=== PATIENT | male | born 1955 | race Caucasian/White ===

== ENCOUNTER 2023-09-18 12:11 | Inpatient (IN) | payer MEDICARE, BC, SELFPAY ==
[2023-09-18] VITALS (13 sets, daily range): BP systolic 121–157; BP diastolic 50–94; BMI 33.9; BMI 34.2
--- NOTE | 2023-09-18 09:01 | W.PN.CARDCBS ---
Today's Communication / Plan
-
[facility] today
Impression / Plan
-
H&P summary.
Full H&P scanned into chart.
PCP: Jesus Palmer MD
CDY: Jeanie Friedman MD
HPI: 68 y/o, PMH sig for elevated calcium score in 2021 with moderate non obstructive CAD in LAD, RCA at cath (2021), Moderate , HTN, statin intolerant HLD, DM, CKD3a w/baseline creat 1.4, GFR 55, Gout, UC, obesity, Colon CA s/p partial colectomy
(2003).
Presented to [facility] with 2 week history progressive exertional chest pain, DARDEN, diaphoresis, relieved with rest. HS troponin negative.
Transferred for cath today.
Echo 06/2023- mild LVH, EF 60-65%, mod w/MG 36, TALIA 1.2
[facility] 09/16/21- mid LAD 50%, ectatic RCA with 50-60% mid and 30% distal RCA stenosis
RCA iFR negative, c/w non flow limiting disease
Moderate w/MG 34
IMPRESSION/PLAN:
USA/Mod non obstructive CAD (2021)
presents with USA/exertional chest pain
[facility] today
aspirin 81mg daily- dose given today
intolerant to plavix in the past- causes diarrhea- consider alt med if DAPT is necessary
cardiac rehab
followup w/Dr Friedman at d/c
Moderate - stable on echo from 06/2023
continue to monitor symptoms, outpt echos per primary cards.
HTN- stable on amlodipine 5/d, atenolol 12.5/BID, losartan 25/BID
monitor trends
HLD- history of statin intolerance (atorvastatin, simvastatin, pravastatin)
currently on Repatha, check lipids in AM
Borderline DM- check A1C in AM
CKD3a- some reports of CKD4 but current labs do not reflect this
pre/post cath fluids and check creat in AM post dye load
GEORGE/CPAP
Gout
Obesity
Progress Note - Human Resources Supervisor
Subjective
Date of Service: September 18, 2023
[2023-09-18] MEDS: LOW STRENGTH ASPIRIN 81 MG PO (12:50)
[2023-09-18 13:52] LABS: ACT-LR - POC 215 Seconds (116-155)
[2023-09-18 15:02] LABS: ACT-LR - POC > 397 Seconds (116-155)
--- NOTE | 2023-09-18 15:21 | CONSULT.CT ---
Consultation
-
Date/Time Consultation Performed: 09/18/23 15:20
Requesting Provider: Dr. Taylor
Performing Provider: Juan Carlos Rdz PA-C
Reason for Consultation: /CAD
Patient History
Physicians
Outpatient Ammonium Sulfate Operator: Dr. Benito
Inpatient Ammonium Sulfate Operator: Dr. Taylor
History of Present Illness
68 year-old male with history of nonobstructive CAD, mod , prediabetes, HTN, CKD, ulcerative colitis, and nephrolithiasis [facility] in [facility] with angina. CP was described as occuring with less and less activity. Troponins were mildly
elevated with little delta change. The patient requested to be transferred to [facility] because he is already established as a patient here. Dr. Taylor, the physician who did his prior cath, accepted the patient. LHC was performed on
09/17/23 which showed a 50-60% stenosis of his RCA. All other vessels showed nonobstructive coronary disease. He had moderate with a mean gradient of 34mmHg
Past Medical History
Past Medical History: Angina, NIDDM (prediabetes), GEORGE (uses CPAP), Renal Failure (CKD) and Valvular Disease
diverticulitis, ulcerative cholitis, nephrolithiasis
Past Surgical History
Past Surgical History: Cholecystectomy
Bowel resection,colostomy reversal, rotator cuff repair, hernia repair
Family History
Family Medical History: CAD (Father and brother both had MT's.)
Social History
Alcohol: Occasional
Tobacco: Non-Smoker
Allergies
Allergy/AdvReac Type Severity Reaction Status Date / Time
clopidogrel [From Plavix] Allergy intolerance Verified 09/18/23 12:45
hydromorphone [From Dilaudid] Allergy confused Verified 09/18/23 12:38
Edetxpy-HGG-SyQ Reductase Allergy muscle Verified 09/18/23 12:38
Inhibitor cramps
Home Medications
�Medication �Instructions �Recorded �Confirmed �Type
Flexcin Joint And Mobility 1 tab PO TID 09/16/21 09/18/23 History
amlodipine 5 mg tablet 5 mg PO BID Blood pressure 09/16/21 09/18/23 History
aspirin 81 mg tablet,delayed 81 mg PO DAILY Blood clot 09/16/21 09/18/23 History
release (Aspir-Low) prevention/tx
atenolol 25 mg tablet 12.5 mg PO BID Blood pressure 09/16/21 09/18/23 History
multivitamin 1 ea PO DAILY Supplement 09/16/21 09/18/23 History
omega 1-rxp-mjo-fish oil 300 1 ea PO DAILY Supplement 09/16/21 09/18/23 History
mg-1,000 mg capsule (Fish Oil)
evolocumab 140 mg/mL subcutaneous 140 mg SC Q2W 09/18/23 09/18/23 History
syringe (Repatha Syringe)
ferrous sulfate 325 mg (65 mg 325 mg PO DAILY anemia 09/18/23 09/18/23 History
iron) capsule,extended release
losartan 25 mg tablet 25 mg PO BID htn 09/18/23 09/18/23 History
Review of Systems
-
History Source: Patient
General: Denies Fever, Weight Gain or Weight Loss
HEENT: Denies Visual Changes
Respiratory: Reports DARDEN; Denies SOB
Cardiac: Reports CAD; Denies Palpitations, Nausea or Vomiting
Abdomen/GI: Reports Diarrhea (Has loose stools since his bowel resection); Denies Black Stools or Ulcers
: Denies Dysuria, Frequency or Incontinence
Musculoskeletal: Denies Edema
Neurological: Denies CVA, TIA, Syncope or Dizzy
Vascular: Reports No Symptoms
Physical Exam
Vital Signs
Temp 97.5 F 09/18/23 12:30
Temp route: Core 09/18/23 12:30
Pulse 63 09/18/23 12:30
Resp Rate 22 09/18/23 12:30
Blood pressure 145/94 09/18/23 12:30
Blood pressure extremity used: Left upper arm 09/18/23 12:30
Position: Sitting 09/18/23 12:30
SaO2 100 09/18/23 12:30
Oxygen Mode of Delivery Room air 09/18/23 12:30
Can the patient verbally communicate their pain? Yes 09/18/23 14:35
Actual Weight 210 lb 09/18/23 12:21
Body Mass Index (BMI) 33.9 09/18/23 12:21
Exam
General: Well Developed and No Apparent Distress
HEENT: Normocephalic
Neck: Trachea Midline; Negative Carotid Bruit
Respiratory: Clear
Cardiac: Regular Rhythm and Murmur (2/6 systolic)
GI: Non Tender, Non Distended and Normal Bowel Sounds
Rectal: Deferred by Provider
Neuro: Awake and AO x 3
Extremities: Negative Lower Level Edema
Psych: Calm
Assessment / Plan
-
68 year old with known history of and CAD presented with worsening angina. CTS consulted for elective surgery, however, patient would prefer to expedite intervention. Dr. Brown reviewed chart and pertinent testing and interviewed the patient.
He will be tentatively scheduled for AVR/CABGx1(SVG to RCA) on Sunday, 09/20. Preop workup to include CT chest, Carotid US, Panorex, and Echo
Data Reviewed
-
Delivery Clerk: Discussed with Physician
--- NOTE | 2023-09-18 15:34 | ITS.CL.CATH ---
Gizzard Peeler - Catheterization
Cardiac Catheterization
Procedure Report:
CARDIAC CATHETERIZATION REPORT
Date of Procedure: 09/18/2023
Referring: Faisal Messina DO
Indication: Angina with minimal activity in patient with known CAD
HEMODYNAMIC DATA
AO: 127/58
LV: 170/20
There is a mean gradient of 46 mmHg across the aortic valve
LEFT VENTRICULOGRAPHY: Normal left ventricular wall motion with EF 64%. There is severe calcification of the aortic valve noted
CORONARY ANGIOGRAPHY
Dominance: Right
Left Main: Normal
LAD: Moderate proximal and mid LAD calcification with 30% mid LAD stenosis just proximal to an ectatic segment with 30% distal LAD stenosis proximal to the LV apex and otherwise mild luminal irregularities. These lesions are similar in appearance
to the prior study from August 2021
Circumflex: Mild calcification with mild luminal irregularities
RCA: Large dominant mildly ectatic vessel with 70% mid stenosis and 20-30% distal stenosis proximal to the takeoff of the large PDA and large posterolateral system
FloWire assessment: We decided to evaluate the RCA disease with FloWire. A JR4 guide catheter was used initially but could not be manipulated into the RCA origin and was replaced with an AR-1 guide. Heparin was used for coagulation. A [employer]
flow wire was successfully advanced into the distal RCA. Initial iFR measurements were 0.96, 0.96, 0.97. These are consistent with nonflow-limiting disease. However, when we pulled the wire back to ensure that it had normalized properly, there
was a discrepancy and the wire was renormalized then advanced into the distal RCA. iFR measurements were then 0.93 and 0.93. These were felt to be borderline measurements and we opted to confirm with FFR. Intravenous adenosine was administered at
140 mcg/kg/min and the FFR was then measured at 0.83. This is consistent with nonflow-limiting disease. Interestingly, we then measured IFR at 0.86 and 0.88, both of which suggest flow-limiting disease. A final IFR of 0.92 was recorded. Given
that the bulk of the data obtained suggested nonflow-limiting disease, the procedure was terminated.
Closure Device: None-the procedure was performed via the right radial artery. The Yuri's test was normal prior to the procedure.
Radiation (mGy): 580
DAP (cm2.Gy): 51.7
Fluoroscopy time: 9.8 minutes
CONCLUSIONS
1: Severe calcific aortic stenosis with mean gradient 46 mmHg
2: Normal left ventricular function with EF 64%
3. Single-vessel CAD with 70% mid RCA stenosis. FloWire data obtained was somewhat contradictory although the bulk of the data has suggested nonflow-limiting disease
4. Given his symptoms and after further discussion with the patient a recognition that he is also experiencing exertional fatigue, I believe he has symptomatic severe aortic stenosis. He will be referred for surgical AVR with CABG X 1 to the DA.
Given his young age, this is optimal therapy and in my view a much better choice than TAVR
Copy to: Jeanie Friedman MD, Jesus Palmer MD and Daniel Brown MD
Baron Taylor MD, [facility], [facility]
--- NOTE | 2023-09-18 15:53 | PTCARENOTE ---
unablr to complete bp on right due to right band intact
[2023-09-18 15:59] LABS: Hematocrit 39.4 % (39.0-52.0); Mean Corpuscular Volume 87.8 fL (80.0-94.0); Mean Platelet Volume 8.6 fL (7.4-10.4); Platelet Count 189 10^3/uL (130-400); Red Blood Cell Count 4.49 10^6/uL (4.70-6.10); Red Cell Dist. Width 15.2 % (11.5-14.5); White Blood Cell Count 10.7 10^3/uL (4.8-10.8)
[2023-09-18 16:03] LABS: PT 14.1 Sec (11.4-14.6)
[2023-09-18 16:05] LABS: APTT 89.6 Sec (23.4-35.0)
[2023-09-18 16:22] LABS: ALT (SGPT) 16 U/L (0-50); AST (SGOT) 22 U/L (17-59); Albumin 3.6 g/dl (3.5-5.0); Alkaline Phosphatase 66 U/L (38-126); Blood Urea Nitrogen 18 mg/dl (9-20); Calcium 8.9 mg/dl (8.4-10.2); Carbon Dioxide 20 mmol/L (22-30); Chloride 111 mmol/L (98-107); Direct Bilirubin 0.3 mg/dl (0.0-0.4); Estimated Creatinine Clearance 65 ml/min; Glucose 89 mg/dl (70-99); Potassium 3.7 mmol/L (3.5-5.1); Sodium 140 mmol/L (135-145); Total Protein 6.1 g/dl (6.3-8.2); eGFR > 60.00
--- NOTE | 2023-09-18 16:26 | PTCARENOTE ---
pt downstairs having stat, us, xray and catscan
--- NOTE | 2023-09-18 17:39 | PTCARENOTE ---
Received patient from NATASHA dozier. Patient transported via stretcher and this RN to CT scan and XRAY. Patient tolerated. Patient returned to room. Eating dinner at bedside. at bedside. Right radial TR band removed. Dry, sterile dressing
applied. Site soft and nontender. No s/s of hematoma formation. Activity restrictions and signs and symptoms to report discussed with patient. Verbalizes understanding. Patient ambulated to bathroom with a strong, steady gait. Verbalizes no
c/o shortness of breath. No c/o pain or discomfort. Patient resting comfortably in a recliner. Awaiting IVU bed.
[2023-09-18] MEDS: COZAAR 25 MG PO (20:35)
[2023-09-18] MEDS: TENORMIN 12.5 MG PO (20:35)
[2023-09-18] MEDS: NORVASC 5 MG PO (20:35)
[2023-09-19] VITALS (7 sets, daily range): BP systolic 111–142; BP diastolic 46–81; BMI 34.2
--- NOTE | 2023-09-19 01:16 | PTCARENOTE ---
Pt. rec'd into room 2258 from labor relations representative AAOx3, VSS, NSR on the monitor. No complaints of chest pain / discomfort. Right radial cath site dressing CDI with no drainage or sign of hematoma, radial pulse palpable with good sensation. Pt. independent
with ambulation, gait steady. Oriented to room and plan of care discussed, understanding verbalized. Pt. currently sleeping.
--- NOTE | 2023-09-19 08:48 | W.PN.CD ---
Today's Communication / Plan
-
CT surgery consult.
Impression / Plan
-
Impression/Plan: 68 y/o, PMH sig for elevated calcium score in 2021, moderate , HTN, statin intolerant HLD, NIDDM, CKD3a w/baseline creat 1.4, Gout, UC, obesity, Colon CA s/p partial colectomy (2003) and moderate non obstructive CAD in LAD, RCA at
prior cath (2021) transferred [facility] with with 2 week history progressive exertional chest pain, DARDEN, diaphoresis, relieved with rest.
#CAD/Unstable Angina
-Catheterization shows single vessel CAD. iFR/FFR suggests that the RCA disease is borderline with mostly negative but one positive measurement.
-Continue atenolol, amlodipine, aspirin.
-Plan for single vessel bypass at the time of SAVR.
-Continue PCSK9i.
#Severe
-Echocardiogram/Cath shows progression of from moderate to severe.
-Mean gradient [address] surgery consult for SAVR, 1V CABG.
#HTN
-Chronic, stable.
-Continue amlodipine, atenolol, losartan.
#HLD
-Chronic, stable.
-History of statin intolerance (atorvastatin, simvastatin, pravast.atin)
-Tolerating evolocumab (Repatha).
-Goal LDL < 55.
#Borderline DM
-Chronic, stable.
-HbA1C pending.
#CKD3a
-Prior reports of CKD4 but current labs do not reflect this.
#GEORGE/CPAP
#Gout
#Obesity
PCP: Jesus Palmer MD
CDY: Jeanie Friedman MD
Subjective/Interval History:
TTE yesterday revealed that has progressed to severe.
Cath showed RCA disease with somewhat contradictory findings.
He feels better today, no chest pain.
DATA:
TTE, 09/18/2023:
CONCLUSIONS
Normal biventricular size and systolic function without regional wall motion
abnormality.
Mild concentric left ventricular hypertrophy.
Mildly dilated left atrium.
Severe aortic stenosis (mean 44 mmHg and TALIA 1.1 cmsq).
Mild aortic regurgitation.
Trace tricuspid regurgitation.
Estimated pulmonary artery pressure of 20-25 mmHg.
No prior study available for comparison.
Coronary Angiography, 09/18/2023:
CORONARY ANGIOGRAPHY
Dominance: Right
Left Main: Normal
LAD: Moderate proximal and mid LAD calcification with 30% mid LAD stenosis just proximal to an ectatic segment with 30% distal LAD stenosis proximal to the LV apex and otherwise mild luminal irregularities. These lesions are similar in appearance
to the prior study from August 2021
Circumflex: Mild calcification with mild luminal irregularities
RCA: Large dominant mildly ectatic vessel with 70% mid stenosis and 20-30% distal stenosis proximal to the takeoff of the large PDA and large posterolateral system
FloWire assessment: We decided to evaluate the RCA disease with FloWire. A JR4 guide catheter was used initially but could not be manipulated into the RCA origin and was replaced with an AR-1 guide. Heparin was used for coagulation. A [employer]
flow wire was successfully advanced into the distal RCA. Initial iFR measurements were 0.96, 0.96, 0.97. These are consistent with nonflow-limiting disease. However, when we pulled the wire back to ensure that it had normalized properly, there
was a discrepancy and the wire was renormalized then advanced into the distal RCA. iFR measurements were then 0.93 and 0.93. These were felt to be borderline measurements and we opted to confirm with FFR. Intravenous adenosine was administered at
140 mcg/kg/min and the FFR was then measured at 0.83. This is consistent with nonflow-limiting disease. Interestingly, we then measured IFR at 0.86 and 0.88, both of which suggest flow-limiting disease. A final IFR of 0.92 was recorded. Given
that the bulk of the data obtained suggested nonflow-limiting disease, the procedure was terminated.
Orthopantogram, 09/18/2023:
IMPRESSION:
No suspicious periapical lucencies. No displaced fractures. No suspicious calcifications seen to suggest sialolithiasis. Visualized sinuses appear clear.
Physical Exam
Vital Signs/Labs
Vital Signs
Temp Pulse Resp BP Pulse Ox
36.6 C 85 18 122/51 97
09/19/23 08:02 09/19/23 08:02 09/19/23 08:02 09/19/23 03:17 09/19/23 03:19
09/17/23 09/18/23 09/19/23
11:59 11:59 11:59
Actual Weight 96.1 kg
09/18/23 15:26
09/18/23 15:25
PT 14.1 Sec (11.4-14.6) 09/18/23 15:25
INR 1.10 09/18/23 15:25
APTT 89.6 Sec (23.4-35.0) H 09/18/23 15:25
Physical Exam
Constitutional: No acute distress and Comfortable
EENT: Anicteric and Moist mucous membranes
Cardiovascular: Rhythm & rate is regular, Pedal edema is absent, JVD pressure is normal, Systolic murmur present and S1S2 is normal
Respiratory: Respiratory effort normal, Lungs clear to auscul., Wheeze Absent, Crackles Absent and Rhonchi Absent
GI: Soft, Distention absent, Flat, Non tender and Normal bowel sounds
Neuro/Psych: AO x 3
Other: Cath Site (Right radial access site is C/D/I.)
Data Reviewed
-
Date of Service: September 19, 2023
Medical Decision Making: Reviewed Test Results, Test Interpretation and Review of Case with other Provider
EKG: Tracing Personally Visualized and interpreted and Report Reviewed by me
Echo: Tracing Personally Visualized and interpreted and Report Reviewed by me
X-Ray/CT/US/MRI/NUC/PET: Image Personally Visualized and interpreted and Report Reviewed by me
Medical Tests (PFT, Pathology etc): Image Personally Visualized and interpreted and Report Reviewed by me
Labs: Labs Reviewed by me
[2023-09-19] MEDS: TENORMIN 12.5 MG PO ×2 (09:16→19:23)
[2023-09-19] MEDS: FEOSOL 325 MG PO (09:18)
[2023-09-19] MEDS: NORVASC 5 MG PO ×2 (09:18→19:22)
[2023-09-19] MEDS: ASPIR LOW (ENTERIC COATED) 81 MG PO (09:18)
[2023-09-19] MEDS: COZAAR 25 MG PO ×2 (09:19→19:23)
--- NOTE | 2023-09-19 11:02 | PTCARENOTE ---
received patient this am. patient sitting up in chair eating breakfast.voices no concerns at this time. right radial dsg. D/I, left INT leaking , changed to right arm #22P, kathy. well. carotid U/S completed.
--- NOTE | 2023-09-19 11:57 | CM ---
Addendum entered by TUNDE Quinn 09/19/23 14:25:
Met w/ patient and spouse at bedside to complete pre-operative teaching.
Reviewed pre and post op routines.
Discussed post op restrictions to include lifting, driving, flying and sternal precautions.
Discussed post op MD appointments, Cardiac Rehab + visit from CT Transitional Care RN; patient agreeable to this.
Cardiac Surgery booklet provided.
Anticipate CT surgery 09/20.
DC goal is for home with CT Transitional Care RN.
CM to follow.
Original Note:
CM following for DC planning needs.
CM met w/ patient at bedside to complete initial assessment.
Pt. resides w/ spouse in a private, 2 story home, [facility]. Functionally, patient is quite indep. without the use of any assisted device.
Pt. has SPC at home (does not use) and a CPAP (uses nightly).
Pt. has Rx plan and uses [facility] on [address].
Pt. is anticipating CT Surgery this week.
Will plan to meet w/ patient once spouse arrives to complete pre-admission teaching.
Will follow.
--- NOTE | 2023-09-19 13:43 | W.PN.UPDATE ---
Update Note
Progress Note Update
Procedure Type:�CABG + AVR
PERIOPERATIVE OUTCOME ESTIMATE %
Operative Mortality 1.77%
Morbidity & Mortality 11.3%
Stroke 1.05%
Renal Failure 2.38%
Reoperation 3.63%
Prolonged Ventilation 6.57%
Deep Sternal Wound Infection 0.14%
Long Hospital Stay (>14 days) 5.06%
Short Hospital Stay (<6 days)* 44%
Clinical Summary
Planned Surgery: CABG + AVR, Urgent, First cardiovascular surgery
Demographics: 68 year old, male, 96.1kg, 168cm, BMI: 34 kg/m�
Lab Values: Creatinine: 1.2 mg/dL, Hematocrit: 39.4%, WBC Count: 10.7 10�/�L, Platelet Count: 245726 cells/�L
Substance Abuse: Never smoker, Alcohol use: <=1 drink/week
Risk Factors / Comorbidities: Hypertension, Family Hx of CAD
Coronary Artery Disease: 1 vessel diseased, Unstable Angina
Valve Disease: Aortic Stenosis, Mild AR, Trivial/Trace TR
--- NOTE | 2023-09-19 16:08 | PTCARENOTE ---
patient has know left ankle pain that he was suppose to receive a cortisone shot this sunday the . patient is doing his exercises and icing left ankle. Kami LUA aware, ordered OT/PT.
[2023-09-20] VITALS (9 sets, daily range): BP systolic 110–144; BP diastolic 38–79; PULSE 85; BMI 33.7
--- NOTE | 2023-09-20 00:23 | PTCARENOTE ---
Tele monitor shows SR, HR in the 60-70's. Denies any chest pain or discomfort. Right radial site remains intact w/ no s/s of hematoma. Call ji in reach.
[2023-09-20] MEDS: TYLENOL 650 MG PO ×3 (02:00→18:02)
--- NOTE | 2023-09-20 04:38 | PTCARENOTE ---
At 03:56 pt had an 11 beat run of VT. Pt was resting in bed, asymptomatic during the event. BP 112/38 and HR 60. Teresita MEADE PA made aware, orders obtained for blood work. Labs collected and sent to lab.
[2023-09-20 05:00] LABS: Hematocrit 38.4 % (39.0-52.0); Hemoglobin 13.1 g/dL (13.0-18.0); Mean Corp Hgb Conc. 34.1 g/dL (33.0-37.0); Mean Corpuscular Volume 85.1 fL (80.0-94.0); Mean Platelet Volume 8.4 fL (7.4-10.4); Platelet Count 212 10^3/uL (130-400); Red Blood Cell Count 4.51 10^6/uL (4.70-6.10); Red Cell Dist. Width 15.1 % (11.5-14.5); White Blood Cell Count 9.9 10^3/uL (4.8-10.8)
[2023-09-20 05:22] LABS: Blood Urea Nitrogen 28 mg/dl (9-20); Calcium 9.6 mg/dl (8.4-10.2); Carbon Dioxide 22 mmol/L (22-30); Chloride 110 mmol/L (98-107); Estimated Creatinine Clearance 52 ml/min; Glucose 103 mg/dl (70-99); Potassium 3.9 mmol/L (3.5-5.1); Sodium 141 mmol/L (135-145); eGFR 51.03
--- NOTE | 2023-09-20 07:19 | W.PN.UPDATE ---
Addendum entered and electronically signed by Daniel Brown MD 09/20/23 07:31:
CORRECTION: Creat is 1.5 (not 1.3)
Original Note:
Update Note
Progress Note Update
CARDIAC SURGERY ATTENDING:
It was my pleasure to meet with Mr. Orlando Jennings and his . He is a very pleasant 68-year-old gentleman with severe aortic stenosis and single-vessel coronary disease affecting his RCA. I recommended AVR/CABG x 1. We reviewed his
pathology, the proposed operative interventions, the associated periprocedural risks (including, but not limited to, , stroke, UT, arrhythmia, PPM requirement, PNA, RUPERTO/F, bleeding, and infection), the expected in-hospital postprocedural
course, and the expected outpatient recovery. All questions were answered to the best my abilities. The patient is agreeable to proceed and would prefer to have his surgery as soon as possible. I have scheduled him for tomorrow 09/20/2022.
His preop workup has been completed.
CATH: Mean gradient 46 mmHg, 70% mid RCA stenosis
ECHO: LVEF 65 to 70%, normal RV, mild concentric LVH. No MR. Severe calcific leaflet changes to his aortic valve with restricted leaflet motion resulting in severe stenosis with peak/mean gradients of 84/44 mmHg effectively, TALIA 1.1. There is
mild aortic regurgitation. Trace tricuspid regurgitation (PASP 20 to 25 mmHg). Aortic root is normal in caliber.
EKG: Normal sinus rhythm at 64 bpm. AZ: 162, QRS: 110, QTc: 443
CAROTIDS: No flow-limiting stenosis bilaterally, antegrade flow in bilateral vertebral arteries.
PANELIPSE: No suspicious periapical lucencies or displaced fractures
CT-C: No significant abnormalities identified in the chest. There are significant calcifications of the patient's aortic valve and moderate to severe coronary arterial calcifications. The patient states in the aorta is relatively free of any
calcific changes. The visualized portion of his upper abdomen demonstrated 2.2 cm lipid rich right adrenal adenoma and a probable left adrenal gland hyperplasia versus additional small adenoma.
LABS: 9.9>13.1 (38.4)<212; 28/1.3
STS: Mortality 1.77, Morbidity: 11.3
Thank you for the opportunity to participate in the care of this kind gentleman. Please call with any questions or concerns.
Daniel Brown MD
[phone]
--- NOTE | 2023-09-20 07:54 | W.PN.CD ---
Today's Communication / Plan
-
Surgery tomorrow.
Impression / Plan
-
Impression/Plan: 68 y/o, PMH sig for elevated calcium score in 2021, moderate , HTN, statin intolerant HLD, NIDDM, CKD3a w/baseline creat 1.4, Gout, UC, obesity, Colon CA s/p partial colectomy (2003) and moderate non obstructive CAD in LAD, RCA at
prior cath (2021) transferred [facility] with with 2 week history progressive exertional chest pain, DARDEN, diaphoresis, relieved with rest.
#CAD/Unstable Angina
-Catheterization shows single vessel CAD. iFR/FFR suggests that the RCA disease is borderline with mostly negative but one positive measurement.
-Continue atenolol, amlodipine, aspirin.
-Plan for single vessel bypass at the time of SAVR.
-Continue PCSK9i.
#Severe
-Echocardiogram/Cath shows progression of from moderate to severe.
-Mean gradient [address]
-CT surgery consult for SAVR, 1V CABG.
#HTN
-Chronic, stable.
-Continue amlodipine, atenolol, losartan.
#HLD
-Chronic, stable.
-History of statin intolerance (atorvastatin, simvastatin, pravast.atin)
-Tolerating evolocumab (Repatha).
-Goal LDL < 55.
#Borderline DM
-Chronic, stable.
-HbA1C pending.
#CKD3a
-Prior reports of CKD4 but current labs do not reflect this.
#GEORGE/CPAP
#Gout
#Obesity
PCP: Jesus Palmer MD
CDY: Jeanie Friedman MD
Subjective/Interval History:
11 beat run of NSVT overnight.
Patient remains asymptomatic.
DATA:
TTE, 09/18/2023:
CONCLUSIONS
Normal biventricular size and systolic function without regional wall motion
abnormality.
Mild concentric left ventricular hypertrophy.
Mildly dilated left atrium.
Severe aortic stenosis (mean 44 mmHg and TALIA 1.1 cmsq).
Mild aortic regurgitation.
Trace tricuspid regurgitation.
Estimated pulmonary artery pressure of 20-25 mmHg.
No prior study available for comparison.
Coronary Angiography, 09/18/2023:
CORONARY ANGIOGRAPHY
Dominance: Right
Left Main: Normal
LAD: Moderate proximal and mid LAD calcification with 30% mid LAD stenosis just proximal to an ectatic segment with 30% distal LAD stenosis proximal to the LV apex and otherwise mild luminal irregularities. These lesions are similar in appearance
to the prior study from August 2021
Circumflex: Mild calcification with mild luminal irregularities
RCA: Large dominant mildly ectatic vessel with 70% mid stenosis and 20-30% distal stenosis proximal to the takeoff of the large PDA and large posterolateral system
FloWire assessment: We decided to evaluate the RCA disease with FloWire. A JR4 guide catheter was used initially but could not be manipulated into the RCA origin and was replaced with an AR-1 guide. Heparin was used for coagulation. A AlterG
flow wire was successfully advanced into the distal RCA. Initial iFR measurements were 0.96, 0.96, 0.97. These are consistent with nonflow-limiting disease. However, when we pulled the wire back to ensure that it had normalized properly, there
was a discrepancy and the wire was renormalized then advanced into the distal RCA. iFR measurements were then 0.93 and 0.93. These were felt to be borderline measurements and we opted to confirm with FFR. Intravenous adenosine was administered at
140 mcg/kg/min and the FFR was then measured at 0.83. This is consistent with nonflow-limiting disease. Interestingly, we then measured IFR at 0.86 and 0.88, both of which suggest flow-limiting disease. A final IFR of 0.92 was recorded. Given
that the bulk of the data obtained suggested nonflow-limiting disease, the procedure was terminated.
Orthopantogram, 09/18/2023:
IMPRESSION:
No suspicious periapical lucencies. No displaced fractures. No suspicious calcifications seen to suggest sialolithiasis. Visualized sinuses appear clear.
Physical Exam
Vital Signs/Labs
Vital Signs
Temp Pulse Resp BP Pulse Ox
37.1 C 61 18 112/38 97
09/20/23 02:01 09/20/23 04:00 09/20/23 02:01 09/20/23 03:59 09/20/23 02:01
09/18/23 09/19/23 09/20/23
11:59 11:59 11:59
Actual Weight 96 kg 94.6 kg
09/20/23 04:32
09/20/23 04:32
PT 14.1 Sec (11.4-14.6) 09/18/23 15:25
INR 1.10 09/18/23 15:25
APTT 89.6 Sec (23.4-35.0) H 09/18/23 15:25
Magnesium 2.0 mg/dl (1.6-2.3) 09/20/23 04:32
Physical Exam
Constitutional: No acute distress and Comfortable
EENT: Anicteric and Moist mucous membranes
Cardiovascular: Rhythm & rate is regular, Pedal edema is absent, JVD pressure is normal, Systolic murmur present and S1S2 is normal
Respiratory: Respiratory effort normal, Lungs clear to auscul., Wheeze Absent, Crackles Absent and Rhonchi Absent
GI: Soft, Distention absent, Flat, Non tender, Normal bowel sounds and Distention present
Neuro/Psych: AO x 3
Data Reviewed
-
Date of Service: September 20, 2023
Medical Decision Making: Reviewed Test Results, Independent Historian Assessment and Test Interpretation
EKG: Tracing Personally Visualized and interpreted and Report Reviewed by me
Echo: Tracing Personally Visualized and interpreted and Report Reviewed by me
X-Ray/CT/US/MRI/NUC/PET: Image Personally Visualized and interpreted and Report Reviewed by me
Medical Tests (PFT, Pathology etc): Image Personally Visualized and interpreted and Report Reviewed by me
Labs: Labs Reviewed by me
[2023-09-20] MEDS: TENORMIN 12.5 MG PO ×2 (08:42→20:26)
[2023-09-20] MEDS: FEOSOL 325 MG PO (08:43)
[2023-09-20] MEDS: ASPIR LOW (ENTERIC COATED) 81 MG PO (08:43)
[2023-09-20] MEDS: NORVASC 5 MG PO ×2 (08:45→20:26)
[2023-09-20] MEDS: FLUSH (NSS) 1 FLUSH IV (08:46)
--- NOTE | 2023-09-20 09:02 | PTCARENOTE ---
patient c/o left ankle pain, Tylenol po given as ordered.
--- NOTE | 2023-09-20 10:53 | CM ---
Chart reviewed. Patient is independent of ADLS, lives with his in a 2 [address], 2 [address]IL[address], 0 DME. Patient does have a SPC at home if needed. Patient is going for surgery 09/21/23. Plan is for the patient to return home with CT Transitional RN. CM to
follow
--- NOTE | 2023-09-20 17:33 | CON.ORTHO ---
Consultation
-
Date/Time Consultation Requested: 10:18 AM 09/20/2023
Date/Time Consultation Performed: 5:15 PM 09/20/2023
Requesting Provider: Rupal Beltran
Performing Provider: Rito
Reason for Consultation: Right foot/ankle pain
Consultation - Orthopedics
History
HPI: 68-year-old male history of coronary artery disease aortic stenosis hypertension chronic kidney disease ulcerative colitis transferred from emergency department at [facility] with angina and scheduled to undergo CABG procedure tomorrow.
Patient has a history of a left foot and ankle problems followed closely outpatient basis at [facility] orthopedics. Orthopedics was consulted for evaluation of left foot ankle pain prior to his surgery tomorrow. Patient reports that he has had
ongoing problems with his left foot and ankle has been treated with both injections bracing activity modification oral medications. He reports that he has had progressive pain both medial and lateral foot and ankle over the last several weeks and
has actually required a walker for ambulatory assistance. He did have an appointment scheduled outpatient basis with his almond blancher hand tomorrow to discuss potential repeat injections. He has specific questions regarding managing his pain with
perioperative period.
Allergies / Home Medications
Past medical history: Coronary artery disease aortic stenosis prediabetes hypertension chronic kidney disease ulcerative colitis
Past surgical history: Cholecystectomy, bowel resection colostomy reversal rotator cuff repair hernia repair
Family history: Not pertinent
Social history: Lives with family, non-smoker
Allergy/AdvReac Type Severity Reaction Status Date / Time
clopidogrel [From Plavix] Allergy intolerance Verified 09/18/23 12:45
hydromorphone [From Dilaudid] Allergy confused Verified 09/18/23 12:38
Ddbtqdg-FPR-ZyD Reductase Allergy muscle Verified 09/18/23 12:38
Inhibitor cramps
�Medication �Instructions �Recorded
Flexcin Joint And Mobility 1 tab PO TID Supplement 09/16/21
amlodipine 5 mg tablet 5 mg PO BID Blood pressure 09/16/21
aspirin 81 mg tablet,delayed 81 mg PO DAILY Blood clot 09/16/21
release (Aspir-Low) prevention/tx
atenolol 25 mg tablet 12.5 mg PO BID Blood pressure 09/16/21
multivitamin 1 ea PO DAILY Supplement 09/16/21
omega 4-pvr-xhz-fish oil 300 1 ea PO DAILY Supplement 09/16/21
mg-1,000 mg capsule (Fish Oil)
evolocumab 140 mg/mL subcutaneous 140 mg SC Q2W High Cholesterol 09/18/23
syringe (Repatha Syringe)
ferrous sulfate 325 mg (65 mg 325 mg PO DAILY anemia 09/18/23
iron) capsule,extended release
losartan 25 mg tablet 25 mg PO BID htn 09/18/23
Vital Signs / Lab Results
Temp Pulse Resp BP Pulse Ox
98.7 F 82 20 144/62 95
09/20/23 15:00 09/20/23 16:00 09/20/23 15:00 09/20/23 15:03 09/20/23 15:00
09/20/23 04:32
09/20/23 04:32
10 point review systems reviewed and negative unless otherwise stated
General: Pleasant, no acute distress, at rest
Musculoskeletal left lower extremity
Skin intact, no erythema, no ecchymotic staining
Brace is in place that was removed for examination
There is tenderness palpation along medial ankle area of posterior tibialis
Tenderness palpation lateral ankle area peroneal tendons
Tenderness palpation sinus tarsi
There is some mild tenderness palpation anterior tibiotalar joint line
Hindfoot is supple not fixed
There is evidence of pes planovalgus deformity
Sensations intact to light touch in all distributions distally
Pulse cap refill
Diagnostic studies
None performed during this hospitalization. Outpatient chart was reviewed including MRI. Patient with evidence of peroneal tendon tenosynovitis, partial tearing posterior tibialis with evidence of associated tendinitis, there is evidence of
subtalar degenerative joint disease and first MTP
Assessment / Plan
68-year-old male significant cardiac history scheduled for CABG procedure tomorrow with ongoing complaints of left foot and ankle pain previously diagnosed with subtalar DJD, pes planovalgus deformity associated PTT deficiency peroneal
tenosynovitis. Again I had a long discussion the patient regarding his various diagnoses and treatment options. I would not recommend at this point repeat corticosteroid injection while hospitalized in the setting of upcoming CABG surgery. He
does have an upcoming appointment scheduled with his established almond blancher hand for a few weeks from now in September. Would recommend maintaining this appointment for further discussion of treatment options. He does get significant relief from ankle brace
would recommend continuing to wear this. Would recommend assistive devices as needed for ambulatory assistance postoperative setting. Recommend Tylenol as reports that he is limited from taking NSAIDs secondary to cardiac history. Did also
discussed with patient further discussion outpatient setting with his almond blancher hand regarding possible Jacqui bracing. He is not interested in any surgical correction of his flatfoot deformity or fusion surgery. No plans for acute orthopedic
intervention. Follow-up outpatient with his established almond blancher hand for further care.
--- NOTE | 2023-09-20 18:03 | PTCARENOTE ---
patient c/o left ankle pain Tylenol po given as ordered.
[2023-09-21] VITALS (24 sets, daily range): BP systolic 88–160; BP diastolic 55–79; BMI 33.4
[2023-09-21] MEDS: TYLENOL 650 MG PO ×2 (03:23→19:19)
[2023-09-21 04:27] LABS: Blood Urea Nitrogen 34 mg/dl (9-20); Calcium 9.7 mg/dl (8.4-10.2); Carbon Dioxide 24 mmol/L (22-30); Chloride 106 mmol/L (98-107); Estimated Creatinine Clearance 49 ml/min; Glucose 102 mg/dl (70-99); Potassium 4.4 mmol/L (3.5-5.1); Sodium 142 mmol/L (135-145); eGFR 47.23
[2023-09-21] MEDS: BACTROBAN 2% OINTMENT 1 APPLIC NASAL ×2 (05:58→20:54)
[2023-09-21] MEDS: MAGNESIUM OXIDE 500 MG PO (05:59)
[2023-09-21] MEDS: LOPRESSOR 25 MG PO (05:59)
[2023-09-21] MEDS: PROTONIX 40 MG PO (05:59)
--- NOTE | 2023-09-21 07:03 | PTCARENOTE ---
VSS overnight, NSR on the monitor. Pt. clipped and showered x 2 with chlorhexidine soap, pre-op medications given, labs and B/L BP's completed. Pt. taken to [facility] at 0640.
[2023-09-21 07:14] LABS: ACT+ - POC 98 Seconds (82-134)
[2023-09-21 07:15] LABS: B.E. - POC -5.6 mmol/L; Glucose - POC 100 mg/dl (65-99); HCO3 - POC 20 mmol/L (21-29); Hematocrit - POC 37 % PCV (42-52); Hemodilution- POC Yes; Hemoglobin Calculated - POC 12.5; Ionized Calcium - POC 1.19 mmol/L (1.12-1.27); O2 Saturation %Calculated-POC 99.9 5 (92-96); PCO2 - POC 37 mmHg (35-45); PO2 - POC 334 mmHg (80-100); Potassium - POC 3.3 mmol/L (3.6-5.0); Sodium - POC 144 mmol/L (135-145); pH - POC 7.34 (7.35-7.45)
[2023-09-21 07:47] LABS: Urine Albumin Trace (Neg - Trace); Urine Bilirubin Negative (Negative); Urine Character Clear (Clear); Urine Color Yellow; Urine Glucose Negative (Negative); Urine Ketone Negative (Negative); Urine Leukocyte Negative (Negative); Urine Nitrite Negative (Negative); Urine Occult Blood Trace (Negative); Urine Urobilinogen Negative (Neg - 1+)
--- NOTE | 2023-09-21 08:01 | W.PN.CD ---
Today's Communication / Plan
-
SAVG and 1V CABG today.
Anticipate routine post-operative care.
Impression / Plan
-
Impression/Plan: 68 y/o, PMH sig for elevated calcium score in 2021, moderate , HTN, statin intolerant HLD, NIDDM, CKD3a w/baseline creat 1.4, Gout, UC, obesity, Colon CA s/p partial colectomy (2003) and moderate non obstructive CAD in LAD, RCA at
prior cath (2021) transferred [facility] with with 2 week history progressive exertional chest pain, DARDEN, diaphoresis, relieved with rest.
#Severe
-Echocardiogram/Cath shows progression of from moderate to severe.
-Mean gradient 46 mmHg.
-SAVR today.
#CAD/Unstable Angina
-Catheterization shows single vessel CAD. iFR/FFR suggests that the RCA disease is borderline with mostly negative but one positive measurement.
-Continue atenolol, amlodipine, aspirin.
-Plan for single vessel bypass at the time of SAVR.
-Continue PCSK9i.
#HTN
-Chronic, stable.
-Continue amlodipine, atenolol, losartan.
#HLD
-Chronic, stable.
-History of statin intolerance (atorvastatin, simvastatin, pravastatin).
-Tolerating evolocumab (Repatha).
-Goal LDL < 55.
#Borderline DM
-Chronic, stable.
-HbA1C pending.
#CKD3a
-Prior reports of CKD4 but current labs do not reflect this.
#GEORGE/CPAP
#Gout
#Obesity
PCP: Jesus Palmer MD
CDY: Jeanie Friedman MD
Subjective/Interval History:
Patient in surgery today.
DATA:
TTE, 09/18/2023:
CONCLUSIONS
Normal biventricular size and systolic function without regional wall motion
abnormality.
Mild concentric left ventricular hypertrophy.
Mildly dilated left atrium.
Severe aortic stenosis (mean 44 mmHg and TALIA 1.1 cmsq).
Mild aortic regurgitation.
Trace tricuspid regurgitation.
Estimated pulmonary artery pressure of 20-25 mmHg.
No prior study available for comparison.
Coronary Angiography, 09/18/2023:
CORONARY ANGIOGRAPHY
Dominance: Right
Left Main: Normal
LAD: Moderate proximal and mid LAD calcification with 30% mid LAD stenosis just proximal to an ectatic segment with 30% distal LAD stenosis proximal to the LV apex and otherwise mild luminal irregularities. These lesions are similar in appearance
to the prior study from August 2021
Circumflex: Mild calcification with mild luminal irregularities
RCA: Large dominant mildly ectatic vessel with 70% mid stenosis and 20-30% distal stenosis proximal to the takeoff of the large PDA and large posterolateral system
FloWire assessment: We decided to evaluate the RCA disease with FloWire. A JR4 guide catheter was used initially but could not be manipulated into the RCA origin and was replaced with an AR-1 guide. Heparin was used for coagulation. A [employer]
flow wire was successfully advanced into the distal RCA. Initial iFR measurements were 0.96, 0.96, 0.97. These are consistent with nonflow-limiting disease. However, when we pulled the wire back to ensure that it had normalized properly, there
was a discrepancy and the wire was renormalized then advanced into the distal RCA. iFR measurements were then 0.93 and 0.93. These were felt to be borderline measurements and we opted to confirm with FFR. Intravenous adenosine was administered at
140 mcg/kg/min and the FFR was then measured at 0.83. This is consistent with nonflow-limiting disease. Interestingly, we then measured IFR at 0.86 and 0.88, both of which suggest flow-limiting disease. A final IFR of 0.92 was recorded. Given
that the bulk of the data obtained suggested nonflow-limiting disease, the procedure was terminated.
Orthopantogram, 09/18/2023:
IMPRESSION:
No suspicious periapical lucencies. No displaced fractures. No suspicious calcifications seen to suggest sialolithiasis. Visualized sinuses appear clear.
Physical Exam
Vital Signs/Labs
Vital Signs
Temp Pulse Resp BP Pulse Ox
36.9 C 73 20 133/60 97
09/21/23 03:41 09/21/23 05:59 09/21/23 03:41 09/21/23 05:59 09/21/23 03:41
09/19/23 09/20/23 09/21/23
11:59 11:59 11:59
Actual Weight 96 kg 94.6 kg 93.7 kg
09/20/23 04:32
09/21/23 03:39
PT 14.1 Sec (11.4-14.6) 09/18/23 15:25
INR 1.10 09/18/23 15:25
APTT 89.6 Sec (23.4-35.0) H 09/18/23 15:25
Magnesium 2.0 mg/dl (1.6-2.3) 09/20/23 04:32
Physical Exam
Exam deferred.
Data Reviewed
-
Date of Service: September 21, 2023
Medical Decision Making: Reviewed Test Results, Independent Historian Assessment and Test Interpretation
EKG: Tracing Personally Visualized and interpreted and Report Reviewed by me
Echo: Tracing Personally Visualized and interpreted and Report Reviewed by me
X-Ray/CT/US/MRI/NUC/PET: Image Personally Visualized and interpreted and Report Reviewed by me
Medical Tests (PFT, Pathology etc): Image Personally Visualized and interpreted and Report Reviewed by me
Labs: Labs Reviewed by me
Old Records: Reviewed
[2023-09-21 08:16] LABS: Urine Granular Cast >15 /LPF (0); Urine Hyaline Cast 0-2 /LPF (0-2); Urine Red Blood Cell 0-2 /HPF (0-2); Urine White Cell 0-2 /HPF (0-5)
[2023-09-21 08:18] LABS: Urine Bacteria Few (Negative)
[2023-09-21 08:39] LABS: ACT+ - POC 612 Seconds (82-134)
[2023-09-21 09:13] LABS: B.E. - POC -1.9 mmol/L; Glucose - POC 146 mg/dl (65-99); HCO3 - POC 22 mmol/L (21-29); Hematocrit - POC 26 % PCV (42-52); Hemodilution- POC Yes; Hemoglobin Calculated - POC 8.7; Ionized Calcium - POC 1.03 mmol/L (1.12-1.27); O2 Saturation %Calculated-POC 99.9 5 (92-96); PCO2 - POC 33 mmHg (35-45); PO2 - POC 276 mmHg (80-100); Potassium - POC 4.5 mmol/L (3.6-5.0); Sodium - POC 141 mmol/L (135-145); pH - POC 7.43 (7.35-7.45)
[2023-09-21 09:20] LABS: ACT+ - POC 623 Seconds (82-134)
[2023-09-21 09:41] LABS: B.E. - POC -4.3 mmol/L; Glucose - POC 136 mg/dl (65-99); HCO3 - POC 20 mmol/L (21-29); Hematocrit - POC 29 % PCV (42-52); Hemodilution- POC Yes; Hemoglobin Calculated - POC 9.9; Ionized Calcium - POC 1.11 mmol/L (1.12-1.27); O2 Saturation %Calculated-POC 98.5 5 (92-96); PCO2 - POC 35 mmHg (35-45); PO2 - POC 117 mmHg (80-100); Potassium - POC 3.9 mmol/L (3.6-5.0); Sodium - POC 142 mmol/L (135-145); pH - POC 7.38 (7.35-7.45)
[2023-09-21 09:44] LABS: ACT+ - POC 489 Seconds (82-134)
[2023-09-21 10:13] LABS: Glucose - POC 118 mg/dl (65-99); HCO3 - POC 25 mmol/L (21-29); Hematocrit - POC 30 % PCV (42-52); Hemodilution- POC Yes; O2 Saturation %Calculated-POC 99.5 5 (92-96); PCO2 - POC 47 mmHg (35-45); PO2 - POC 175 mmHg (80-100); Potassium - POC 3.9 mmol/L (3.6-5.0); Sodium - POC 142 mmol/L (135-145); pH - POC 7.34 (7.35-7.45)
[2023-09-21 10:15] LABS: ACT+ - POC 455 Seconds (82-134)
[2023-09-21 11:03] LABS: ACT+ - POC 115 Seconds (82-134)
[2023-09-21 11:07] LABS: B.E. - POC -3.9 mmol/L; Glucose - POC 118 mg/dl (65-99); HCO3 - POC 20 mmol/L (21-29); Hematocrit - POC 26 % PCV (42-52); Hemodilution- POC Yes; Hemoglobin Calculated - POC 8.9; Ionized Calcium - POC 1.33 mmol/L (1.12-1.27); O2 Saturation %Calculated-POC 99.8 5 (92-96); PCO2 - POC 33 mmHg (35-45); PO2 - POC 229 mmHg (80-100); Potassium - POC 3.4 mmol/L (3.6-5.0); Sodium - POC 144 mmol/L (135-145)
--- NOTE | 2023-09-21 11:40 | W.CVOR.SURPR ---
[facility] Surgeon Immed Pre Op
-
I have examined this patient prior to performance of the scheduled procedure.
The patient's condition is unchanged from the time of the dictated/written History and
Physical and the patient is able to undergo the scheduled procedure.
--- NOTE | 2023-09-21 11:40 | W.IMMPOSTOP ---
Addendum entered and electronically signed by Daniel Brown MD 09/21/23 13:33:
[id number]
Original Note:
Surgical Immed Post Op Note
-
CARDIAC SURGERY OPERATIVE NOTE:
Preoperative Dx:
Severe , moderate AI
Single-vessel CAD (RCA)
Postoperative Dx:
Same
Procedures:
1) Median sternotomy
2) Endoscopic harvest/prep of RLE GSV
3) CABG x 1 (GSV to RPDA)
4) AVR (#25 Inspiris)
Surgeon:
Daniel Brown M.D.
Assistants:
Kami Burton P.A.-C.; endoscopic GSV harvest/prep; first assistant manager throughout, closure
Morgan SalazarA.AlfCOsman; first assistant manager for median sternotomy/cannulation, closure
Anesthesia:
Solo Greene M.D. and Pedrito AgudeloR.N.A.
Perfusion:
Jose L Frey.C.P.; XC: 92min, CPB: 113min
Findings:
GSV was a healthy appearing vessel w/ 4mm ELD
RPDA was partially visible on epicardial surface, anastomosis performed in proximal portion of vessel which was under approximately 2mm of epicardial adipose tissue. ELD 2.5mm; brisk flow into PDA & PLBs w/ hand infused cardioplegic solution.
Trileaflet AV w/ extensive leaflet calcifications resulting in fixed/largely immobile leaflets. There was very little annular extension of these calcifications with just minor amounts on the NCC and LCC annular attachments. No calcifications of
aortomitral curtain/subvalvular structures.
#25 Inspiris valve secured w/ 16 interrupted, pledgetted sutures
After resumption of respirations and separation from CPB, the GSV to the RPDA was ~2cm longer than ideal. However, this vessel found its own ideal slightly serpentine course making resection of additional length unnecessary.
Post-BRETT: Normal biventricular function, LVEF 65%. No AI/PVL, mean gradient 9mmHg, trace MR, trace TR
Transfusions:
None
Implants:
[employer], INSPIRIS RESILIA, 25mm AV, SN: [id number]
Epicardial V-wires x 2
CT x 3 (Inferior/lateral pericardial, superior mediastinal, right pleural)
Sternal wires x 9
Complications:
None
Condition:
70 sinus w/ isoelectric STs. 111/56. CVP 21. 98%
GTTS: precedex 0.5, insulin 0.5
Stable/guarded to CVICU
[2023-09-21 12:16] LABS: Glucose - Point of Care 127 mg/dl (70-99)
--- NOTE | 2023-09-21 12:25 | CON.INTV ---
Consultation
Consultation Request
Date/Time Consultation Requested: 09/21/2023
Date/Time Consultation Performed: 09/21/2023 - 1210
Requesting Provider: KATERINE Peralta
Performing Provider: Dr. Nielsen
Reason for Consultation: s/p CABG + AVR
Medical History
-
Chief Complaint: Chest pain
History of Present Illness:
68-year-old male with a past medical history of nonobstructive CAD, moderate aortic stenosis, hypertrophic cardiomyopathy, history of ulcerative colitis, nephrolithiasis, GEORGE on CPAP hypertension and hyperlipidemia who presented to [facility] with chest pain. Troponins were mildly elevated and heparin drip was started. Invasive coronary angiography was offered however he wanted to be transferred here to [place] for further management. He has known CAD with 50 to 60%
RCA stenosis that was FFR negative. He was transferred here and repeat left heart cath on 09/18/2023 was done showing severe calcific aorta stenosis with a mean gradient of 46 mmHg, preserved LVEF at 64% with single-vessel CAD with 70% mid RCA
stenosis. Cardiothoracic surgery was consulted for further evaluation -intraoperative BRETT showed moderate�severe aortic stenosis with moderate AI, and a mild sessile atheroma seen in the descending aorta and distal arch. Today (09/21/2023), he
underwent CABG x 1 with aortic valve replacement. There were no complications, the patient was transferred to the CVICU postoperatively and critical care services now consulted for additional recommendations/management.
When I saw the patient he had already been extubated. He is currently on 2 L/min saturating 97%, heart rate 71, BP via left radial A-line is 131/52, BP via NIBP is 99/58. His CVP is 7. He is on an insulin drip at 2.3 units/h, and he is on
Levophed at 1 mcg/min. He mainly complains of chest discomfort. He has a right pleural chest tube + mediastinal chest tubes x 2. He denies headache, abdominal pain, diarrhea, fevers or chills.
PMHx: Hypertension, hyperlipidemia, CKD, history of HOCM, anemia, history of influenza A, GEORGE on CPAP, history of kidney stones, history of CAD, history of
PSHx: Cholecystectomy, bowel resection, colostomy reversal, rotator cuff repair, hernia repair
Past Medical History
Past Medical History: Other (Above as per HPI)
Past Surgical History: Other (Above as per HPI)
Social History
Tobacco: Non-smoker
Alcohol: None
Drug: None
Family History
Family History: CAD (Father + brother both had history of IA), Cancer (Brother: Colon cancer), Diabetes (Brother) and Other (Mother: Lung disease)
Allergies / Home Medications
Allergies
Allergy/AdvReac Type Severity Reaction Status Date / Time
clopidogrel [From Plavix] Allergy intolerance Verified 09/18/23 12:45
hydromorphone [From Dilaudid] Allergy confused Verified 09/18/23 12:38
Liqgcog-RZK-FqP Reductase Allergy muscle Verified 09/18/23 12:38
Inhibitor cramps
Home Medications
�Medication �Instructions �Recorded �Confirmed �Last Taken �Type
Flexcin Joint And Mobility 1 tab PO TID Supplement 09/16/21 09/18/23 09/15/21 History
amlodipine 5 mg tablet 5 mg PO BID Blood pressure 09/16/21 09/18/23 09/16/21 History
aspirin 81 mg tablet,delayed 81 mg PO DAILY Blood clot 09/16/21 09/18/23 09/15/21 History
release (Aspir-Low) prevention/tx
atenolol 25 mg tablet 12.5 mg PO BID Blood pressure 09/16/21 09/18/23 09/16/21 History
multivitamin 1 ea PO DAILY Supplement 09/16/21 09/18/23 09/15/21 History
omega 0-oxe-vbg-fish oil 300 1 ea PO DAILY Supplement 09/16/21 09/18/23 09/15/21 History
mg-1,000 mg capsule (Fish Oil)
evolocumab 140 mg/mL subcutaneous 140 mg SC Q2W High Cholesterol 09/18/23 09/18/23 09/14/23 History
syringe (Repatha Syringe)
ferrous sulfate 325 mg (65 mg 325 mg PO DAILY anemia 09/18/23 09/18/23 Unknown History
iron) capsule,extended release
losartan 25 mg tablet 25 mg PO BID htn 09/18/23 09/18/23 Unknown History
Review of Systems
-
History Source: Patient
All other systems: Negative unless noted
Vitals / Labs / Diagnostic Testing
Vital Signs
Temp Pulse Resp BP Pulse Ox
97.9 F 69 24 89/57 97
09/21/23 18:57 09/21/23 18:51 09/21/23 18:57 09/21/23 18:00 09/21/23 18:57
Lab Data
09/21/23 15:15
09/21/23 12:11
Laboratory Results
09/21/23 09/21/23
12:11 15:15
PT 17.9 H
INR 1.49
APTT 39.6 H
pH 7.35 7.35
pCO2 40 34 L
pO2 136 H 128 H
HCO3 22.1 18.8 L
O2 Delivery Level
Diagnostic Testing:
Physical Exam
-
HEENT: Normocephalic and Anicteric
Cardiovascular: S1/S2 and Peripheral Edema (Negative)
Respiratory: Wheeze (Negative), Rales ([place] bilaterally in the anterior lung sauer (L >R)), Non-Labored Respirations and Other (Chest tubes x [address] (right pleural + mediastinal x 2))
GI: Soft, Non Distended and Non Tender
Neurology: Awake and Alert
Skin: Warm and Dry
General: Comfortable, Chills (Negative) and Sweats (Negative)
Assessment
-
Assessment: 68-year-old male with a past medical history of nonobstructive CAD, moderate aortic stenosis, hypertrophic cardiomyopathy, history of ulcerative colitis, nephrolithiasis, GEORGE on CPAP hypertension and hyperlipidemia who presented to
[facility], with chest pain. Troponins were mildly elevated and heparin drip was started. Invasive coronary angiography was offered however he wanted to be transferred here to [place] for further management. He has known CAD with 50
to 60% RCA stenosis that was FFR negative. He was transferred here and repeat left heart cath on 09/18/2023 was done showing severe calcific aorta stenosis with a mean gradient of 46 mmHg, preserved LVEF at 64% with single-vessel CAD with 70% mid
RCA stenosis. Cardiothoracic surgery was consulted for further evaluation -intraoperative BRETT showed moderate�severe aortic stenosis with moderate AI, and a mild sessile atheroma seen in the descending aorta and distal arch. Today (09/21/2023), he
underwent CABG x 1 with aortic valve replacement. There were no complications, the patient was transferred to the CVICU postoperatively and critical care services now consulted for additional recommendations/management.
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
Impression:
#Moderate�severe aortic stenosis s/p aortic valve replacement with INSPIRIS RESILIA - POD#0
#NSTEMI with single-vessel CAD s/p CABG x 1 (GSV to RPDA) - POD#0
#Anemia
#CKD
#GEORGE on CPAP
Plan:
Patient already extubated to nasal cannula and is doing well, breathing comfortably on 2 L/min
Maintain SpO2 >94%
prn nebulized bronchodilators
Wean off O2 as tolerated keeping goal SpO2 as above
He uses CPAP for GEORGE --> not sure what his settings are. I will order this for him for tonight, and hopefully he can tolerate this as he does have chest pain and may not want to use the CPAP
Pulmonary artery catheter parameters will be followed
Pressors/antihypertensive/inotropes/diuretics will be provided as needed
Replete electrolytes with K>4, Mg>2
Maintain MAP>65
Monitor chest tubes' output
Monitor hemoglobin
Monitor platelet count and coags
Transfuse blood product if needed - keep Hb>8g/dL and plt>50k
CT surgery managing chest tubes
Monitor blood sugar with goal BG 140-180mg/dL
Insulin drip per protocol
Aspiration precautions
Encourage incentive spirometer
DVT prophylaxis
Early nutrition
Early mobilization
Critical care statement: A total of 40 minutes of critical care time was provided for this patient today. This includes management of unstable vital signs, evaluation of the patient at bedside, reviewing the patient's pertinent medical records
including radiographs, microbiology, laboratory evaluations, and discussion with primary team, consultants, pharmacy, nutrition, physical therapy, case management, charge nurse, critical care nursing, and respiratory therapy.
Data:
CXR 09-21-2023:
1. Endotracheal tube at the level of the miroslava, recommend retraction.
2. Right internal jugular central venous catheter and chest drains in position. No pneumothorax.
3. Low lung volumes and basilar atelectatic changes.
[2023-09-21 12:29] LABS: Hematocrit 26.7 % (39.0-52.0); Hemoglobin 9.1 g/dL (13.0-18.0); Platelet Count 120 10^3/uL (130-400)
[2023-09-21 12:30] LABS: B.E. -3.3 mmol/L; HCO3 22.1 mmol/L (21-28); INR 1.49; O2 Saturation % 99.8 % (94-98); PCO2 40 mmHg (35-48); PO2 136 mmHg (83-108); PT 17.9 Sec (11.4-14.6); Potassium 3.8 mMOL/L (3.5-5.1); Sodium 141 mMOL/L (136-145); pH 7.35 (7.35-7.45)
[2023-09-21 12:31] LABS: APTT 39.6 Sec (23.4-35.0)
--- NOTE | 2023-09-21 12:35 | PTCARENOTE ---
pt received from CVOR, sedated on Precedex gtt, RASS -5. core temp via temp sensing Vanegas 96.9F, bear hugger applied as ordered. SR on the monitor, HR 80s. distant heart tones. V wires in place, pacer box off. SBP 100-130s, CVP ~4. pt mechanically
ventilated, ETT #8.0, 24cm@lip. SIMV 12, TV 550, PEEP 5, PS 5, FIO2 60%. 97-100% POX. CTx3, no air leak or crepitus noted. pt abdomen round, s/n. hypoactive BS. Vanegas in place, clear yellow urine. sternal Aquacel intact, chest tube dressing c/d/i. R
groin puncture TOE PUNCHER. RLE JUSTINA bandage in place. RIJ cordis w/ slick in place. L radial Anna flushed, zeroed, and calibrated. PIV x2, insulin gtt running as ordered. lab work drawn, EKG performed, CXR completed. see worklist for VS, I&O, and
assessment.
[2023-09-21 12:36] LABS: Ionized Calcium 1.25 mMOL/L (1.15-1.33)
[2023-09-21] MEDS: ANCEF 10 IV ×2 (12:41)
[2023-09-21] MEDS: NEURONTIN PO ×2 (12:41→15:15)
[2023-09-21] MEDS: NOVOLOG FLEXPEN SC ×2 (12:41→14:27)
[2023-09-21] MEDS: NSS 500 IV (12:41)
[2023-09-21] MEDS: FEOSOL PO (12:41)
[2023-09-21] MEDS: THERAGRAN PO (12:41)
[2023-09-21] MEDS: TENORMIN PO (12:41)
[2023-09-21] MEDS: ASPIR LOW (ENTERIC COATED) PO (12:42)
[2023-09-21] MEDS: NORVASC PO (12:42)
[2023-09-21 12:43] LABS: Blood Urea Nitrogen 32 mg/dl (9-20); Estimated Creatinine Clearance 56 ml/min; Glucose 120 mg/dl (70-99); Magnesium 2.7 mg/dl (1.6-2.3)
[2023-09-21] MEDS: KCL 50 IV (12:47)
--- NOTE | 2023-09-21 12:56 | CM ---
Chart reviewed. Patient is in the OR. Patient is independent of ADLS, lives with his in a 2 [address], 2 CECILIO, 0 DME but has a SPC at home if needed. Plan is for the patient to return home with CT Transitional RN. CM to follow
[2023-09-21] MEDS: DILAUDID 0.5 MG IV ×2 (13:18→22:19)
--- NOTE | 2023-09-21 13:20 | PTCARENOTE ---
per SMT MACHINE OPERATOR, ETT to be pulled back 3cm. RT at bedside to adjust ETT, ETT @21cm. per SMT MACHINE OPERATOR, no CXR after.
[2023-09-21 13:23] LABS: Glucose - Point of Care 170 mg/dl (70-99)
[2023-09-21] MEDS: CARDENE 200 IV (13:45)
[2023-09-21] MEDS: TYLENOL PO ×2 (13:46→23:03)
[2023-09-21 14:08] LABS: Glucose - Point of Care 167 mg/dl (70-99)
--- NOTE | 2023-09-21 14:48 | PTCARENOTE ---
pt following commands, nods appropriately. twitching, Dr. Brown at bedside to assess. pt placed on CPAP trial @1445, POX 98%.
[2023-09-21 15:04] LABS: Glucose - Point of Care 146 mg/dl (70-99)
[2023-09-21] MEDS: PACERONE PO (15:15)
[2023-09-21 15:24] LABS: B.E. -6.1 mmol/L; HCO3 18.8 mmol/L (21-28); Ionized Calcium 1.21 mMOL/L (1.15-1.33); O2 Saturation % 99.9 % (94-98); PCO2 34 mmHg (35-48); PO2 128 mmHg (83-108); Potassium 4.3 mMOL/L (3.5-5.1); pH 7.35 (7.35-7.45)
[2023-09-21 15:25] LABS: Hematocrit 30.1 % (39.0-52.0); Hemoglobin 10.3 g/dL (13.0-18.0); Platelet Count 200 10^3/uL (130-400)
--- NOTE | 2023-09-21 15:45 | PTCARENOTE ---
MVA REACTOR OPERATOR HEAD aware of ABG and H&H results, pt extubated @1535 to 6LNC, 100% POX. oriented x4. IS 500ml.
[2023-09-21] MEDS: ALBUMIN 5% 250 IV ×2 (16:03→17:20)
[2023-09-21 16:11] LABS: Glucose - Point of Care 127 mg/dl (70-99)
[2023-09-21] MEDS: DILAUDID 0.25 MG IV ×2 (16:12→19:19)
[2023-09-21] MEDS: LOW STRENGTH ASPIRIN 81 MG PO (17:04)
[2023-09-21] MEDS: ANCEF 5 IV (17:04)
[2023-09-21 17:09] LABS: Glucose - Point of Care 119 mg/dl (70-99)
[2023-09-21] MEDS: ROXICODONE 5 MG PO (17:20)
--- NOTE | 2023-09-21 17:33 | PTCARENOTE ---
BOXING TRAINER aware pt on Levo @6mcg/min, 2 Albumins given per BOXING TRAINER. Levo able to be titrated per orders. Dilaudid and Roxicodone given for pain control. pt turned and repositioned. pt called to bring home CPAP in tomorrow.
[2023-09-21 19:02] LABS: Glucose - Point of Care 120 mg/dl (70-99)
[2023-09-21 20:04] LABS: Glucose - Point of Care 125 mg/dl (70-99)
--- NOTE | 2023-09-21 20:14 | PTCARENOTE ---
assumed care of patient @ 1900. received pt laying in bed, AOX3. Drowsy postop, responds to verbal commands, RYAN. c/o severe sternum pain and pins/needles down left arm. Good perfusion in arm. .25 dilaudid given for pain. NSR on tele monitor. +PP, -
E. V wire set to 40, .1. Lungs clear, diminished on 2L. IS around 500. 2 mediastinal and 1 R pleural chest tube present, no air leak, tidaling or crepitus noted. belly round, hypoactive, no n/v. tolerating sips and chips well. laguerre present
draining clear yellow urine. all surgical sites CDI, WDL. R IJ cordis with slic, L radial a-line, PIV x2 all patent. received with levo at 1, insulin per procol. call ji within reach.
[2023-09-21] MEDS: SENOKOT-S 1 TABLET PO (20:53)
[2023-09-21] MEDS: NEURONTIN 100 MG PO (20:53)
[2023-09-21] MEDS: ULTRAM 50 MG PO (20:53)
[2023-09-21] MEDS: PACERONE 200 MG PO (20:53)
[2023-09-21] MEDS: SODIUM BICARBONATE 50 MEQ IV ×2 (21:14→22:58)
[2023-09-21 21:15] LABS: Glucose - Point of Care 105 mg/dl (70-99)
[2023-09-21 21:16] LABS: B.E. -6.6 mmol/L; HCO3 18.1 mmol/L (21-28); Ionized Calcium 1.17 mMOL/L (1.15-1.33); PCO2 32 mmHg (35-48); PO2 129 mmHg (83-108); Potassium 3.5 mMOL/L (3.5-5.1); Sodium 142 mMOL/L (136-145); pH 7.36 (7.35-7.45)
[2023-09-21 22:17] LABS: Glucose - Point of Care 106 mg/dl (70-99)
[2023-09-21] MEDS: CALCIUM CHLORIDE 10% SYRINGE 60 MG IV (23:00)
[2023-09-21] MEDS: KCL 40 MEQ PO (23:02)
[2023-09-21 23:10] LABS: Glucose - Point of Care 95 mg/dl (70-99)
--- NOTE | 2023-09-21 23:14 | PTCARENOTE ---
labs drawn - bicarb x2 given , calcium and potassium replaced. tramadol and dilaudid given for pain. pt now resting comfortably, no other change in assessment.
[2023-09-22] VITALS (34 sets, daily range): BP systolic 118–150; BP diastolic 54–79; PULSE 75–76; O2SAT 91–92; BMI 34.5
[2023-09-22 00:14] LABS: Glucose - Point of Care 91 mg/dl (70-99)
[2023-09-22] MEDS: DILAUDID 0.5 MG IV ×4 (02:01→17:17)
[2023-09-22] MEDS: ANCEF 5 IV ×2 (02:02→11:00)
[2023-09-22 02:09] LABS: Glucose - Point of Care 118 mg/dl (70-99)
--- NOTE | 2023-09-22 02:22 | PTCARENOTE ---
Dilaudid given for pain, Cuff pressure 150s/70s, will start cardene if SBP remains >140 per ctpa.
[2023-09-22] MEDS: ULTRAM 50 MG PO ×3 (03:14→17:17)
[2023-09-22 03:38] LABS: Hematocrit 25.3 % (39.0-52.0); Hemoglobin 8.9 g/dL (13.0-18.0); Mean Corp Hgb Conc. 35.2 g/dL (33.0-37.0); Mean Corpuscular Hgb 29.5 pg (27.0-31.0); Mean Corpuscular Volume 83.8 fL (80.0-94.0); Mean Platelet Volume 9.1 fL (7.4-10.4); Platelet Count 149 10^3/uL (130-400); Red Blood Cell Count 3.02 10^6/uL (4.70-6.10); White Blood Cell Count 15.7 10^3/uL (4.8-10.8)
--- NOTE | 2023-09-22 03:42 | PTCARENOTE ---
pt briefly on cardene for sbp >140- no significant change in BP however infusion stopped d/t drop in pulse ox below 90 % , switched to nitro at 10. pt working with incentive spirometer
--- NOTE | 2023-09-22 03:53 | W.PN.CT ---
Addendum entered and electronically signed by Daniel Brown MD 09/22/23 10:00:
I saw and examined the patient.
The PA's note was reviewed and I agree with the note.
Comment:
POD#1 s/p AVR (#25 Inspiris), CABG x 1 (GSV to RCA)
No major overnight events. Remains off vasoactive infusions, NTG started this AM for HTN
- Bulb mediastinal CTs, D/C R pleural CT
- ASA, [Hx of plavix intolerance - increased diarrhea], BB today, amio, repatha
- OOB/IS/ambulate
- PT/OT
Original Note:
Today's Communication / Plan
-
Plan:
-No major issues overnight. Hemodynamically and neurologically intact
-Successfully extubated yesterday 09/21/23 @ 1535
-Weaned off of Levophed gtt overnight. Remains on insulin gtt per protocol. Started on 10 mcg of NTG gtt this AM
-U/O since OR 1095 mL
-Cont. current meds (ASA, Amiodarone, Lopressor if BP permits; Statin and Plavix intolerant)
-Monitor chest tube output: 2meds 115/235, R pleural 5/35 (may be able to d/c today)
-No swan, D/C'd SLIC and a-line this AM @ 0500
-Tele phase today once off insulin gtt per protocol
-Consider keeping laguerre another day given CKD hx, Cr 1.5 today (baseline)
-Maintain temporary PW (will cut before d/c home)
-Maintain cordis
-Encourage use of IS
-Wean off of O2 as tolerated
-OOB into chair/Ambulate
Assessment / Plan
-
Assessment:
-S/P AVR (#25 Inspiris)/CABG x 1 (GSV to RPDA)/Endoscopic harvest/prep of RLE GSV, by Dr. Brown, 09/21/23, pod#1
-Severe , moderate AI
-Single-vessel CAD (RCA)
-USA
-LVEF 60% preop, 65% postop per intraop BRETT
-HTN
-HLD (statin intolerant, on Repatha 140 mg SC Q2W)
-CKD3a
-Renal calculi
-Prediabetes (hgb A1C 6.0)
-Class 1 obesity (BMI 33.3)
-GEORGE (uses CPAP @ home)
-Gout (did not tolerate pharmacotherapy, currently diet controlled)
-Hx diverticulitis S/P partial colectomy, 2003
-Hx Ulcerative colitis S/P colectomy/colostomy with subsequent colostomy reversal, 2004
-S/P L rotator cuff repair
-S/P hernia repair
-S/P cholecystectomy
-Acute postop blood loss/Anemia (stable without blood transfusion)
-Acute postop thrombocytopenia (stable without active bleed)
-Acute postop atelectasis
-Acute postop hypovolemia with subsequent hypervolemia
Discussed patient care with: Cardiology, Nursing, Respiratory Therapy, Pharmacy and Care Team
Subjective
Procedure
AVR (#25 Inspiris)/CABG x 1 (GSV to RPDA)/Endoscopic harvest/prep of RLE GSV, by Dr. Brown, 09/21/23
-
Date of Service: September 22, 2023
Pt c/o pleuritic chest pain, otherwise feels well
Objective Data
-
Lab Results
09/22/23 03:22
PT 17.9 Sec (11.4-14.6) H 09/21/23 12:11
INR 1.49 09/21/23 12:11
APTT 39.6 Sec (23.4-35.0) H 09/21/23 12:11
Vital Signs
Vital Signs
Temp Pulse Resp BP Pulse Ox
98.1 F 71 17 147/73 93
09/22/23 02:00 09/22/23 02:20 09/22/23 02:20 09/22/23 02:14 09/22/23 02:20
CT Intake/Output/Weight
09/21/23 09/21/23 09/22/23
06:59 18:59 06:59
Intake Total 853.4 / 1177.2 323.8 / 1177.2
Output Total 735 / 1140 405 / 1140
Balance 118.4 / 37.2 -81.2 / 37.2
SaO2: 93 (4L)
Physical Exam
-
General: Awake, Oriented and AOx3
Cardiovascular: Regular rate & rhythm, No Murmurs, No Rub and No Gallop
Respiratory: Decreased Breath Sounds (at bases, otherwise clear)
Sternum: Stable
Incision: Clean, Dry, Intact and Dressing Intact
Extremities: No Edema
Data Reviewed
-
Lab Results: Results Reviewed
Medications: Active Meds Reviewed
Chest X-Ray: Report Reviewed and Image Reviewed
ECG: Report Reviewed and Image Reviewed
[2023-09-22 04:02] LABS: Blood Urea Nitrogen 32 mg/dl (9-20); Calcium 9.4 mg/dl (8.4-10.2); Carbon Dioxide 22 mmol/L (22-30); Chloride 111 mmol/L (98-107); Estimated Creatinine Clearance 52 ml/min; Glucose 95 mg/dl (70-99); Magnesium 2.3 mg/dl (1.6-2.3); Sodium 143 mmol/L (135-145); eGFR 51.03
[2023-09-22 04:07] LABS: Glucose - Point of Care 100 mg/dl (70-99)
[2023-09-22] MEDS: TYLENOL 1000 MG PO ×3 (04:31→22:37)
[2023-09-22] MEDS: FLEXERIL 5 MG PO ×2 (04:31→13:16)
[2023-09-22 06:23] LABS: Glucose - Point of Care 115 mg/dl (70-99)
--- NOTE | 2023-09-22 06:31 | PTCARENOTE ---
slic and A line removed per order. pt stood to scale and chair with steady gait. call ji within reach
--- NOTE | 2023-09-22 07:30 | W.PN.ANS.POP ---
Anesthesia Post Operative
- Anesthesia Post Op Note
Vital Signs Stable-See Nursing Note: Yes (nitroglycerin gtt)
Airway Patent: Yes (Nasal O2)
Adequate Pain Control: No (primary team aware and adjusting pain medication)
Change in Mental Status: No
Current Postoperative Nausea & Vomiting: No
Anesthesia Complications: No
General Anesthetic Recall: No
Unplanned Admission: No
Post Op Hydration Adequate: Yes
[2023-09-22] MEDS: FEOSOL 325 MG PO (07:51)
[2023-09-22] MEDS: VITAMIN C 250 MG PO (07:51)
[2023-09-22] MEDS: THERAGRAN 1 TABLET PO (07:51)
[2023-09-22] MEDS: SENOKOT-S 1 TABLET PO ×2 (07:51→20:28)
[2023-09-22] MEDS: PACERONE 200 MG PO ×3 (07:52→22:36)
[2023-09-22] MEDS: LOW STRENGTH ASPIRIN 81 MG PO (07:52)
[2023-09-22] MEDS: LOPRESSOR 12.5 MG PO ×2 (07:52→13:17)
[2023-09-22] MEDS: PROTONIX 40 MG PO (07:53)
[2023-09-22] MEDS: NEURONTIN 100 MG PO ×3 (07:53→22:36)
[2023-09-22] MEDS: LIDOCAINE 4% PATCH 1 PATCH TOPICAL (07:54)
--- NOTE | 2023-09-22 08:09 | W.PN.CD ---
Today's Communication / Plan
-
Agree with care
Impression / Plan
-
Impression/Plan: 68 y/o, PMH sig for elevated calcium score in 2021, moderate , HTN, statin intolerant HLD, NIDDM, CKD3a w/baseline creat 1.4, Gout, UC, obesity, Colon CA s/p partial colectomy (2003) and moderate non obstructive CAD in LAD, [facility] progressive exertional chest pain, DARDEN, diaphoresis, relieved with rest.
CAD and
- S/p AVR CABG
- Post op EKG and intraop BRETT both good
- Doing well
Acute blood loss anemia from procedure
HTN
Mixed hyperlipidemia
CKD3a
Prediabetes
PCP: Jesus Palmer MD
CDY: Jeanie Friedman MD
Subjective:
Pain controlled
Physical Exam
Vital Signs/Labs
Vital Signs
Temp Pulse Resp BP Pulse Ox
98.4 F 85 15 144/67 94
09/22/23 06:00 09/22/23 06:20 09/22/23 06:00 09/22/23 06:14 09/22/23 06:00
09/21/23 09/22/23 09/23/23
06:59 06:59 06:59
Actual Weight 93.7 kg 97 kg
09/22/23 03:22
09/22/23 03:22
PT 17.9 Sec (11.4-14.6) H 09/21/23 12:11
INR 1.49 09/21/23 12:11
APTT 39.6 Sec (23.4-35.0) H 09/21/23 12:11
Magnesium 2.3 mg/dl (1.6-2.3) 09/22/23 03:22
Physical Exam
Constitutional: No acute distress
EENT: Anicteric
Cardiovascular: Rhythm & rate is regular and Pedal edema is absent
Respiratory: Respiratory effort normal and Lungs clear to auscul. (decrease at left base)
GI: Soft and Distention absent
Neuro/Psych: AO x 3
Data Reviewed
-
Date of Service: September 22, 2023
[2023-09-22 08:15] LABS: Glucose - Point of Care 184 mg/dl (70-99)
[2023-09-22] MEDS: BACTROBAN 2% OINTMENT 1 APPLIC NASAL ×2 (08:16→20:27)
[2023-09-22] MEDS: NOVOLOG FLEXPEN 4 UNITS SC ×2 (08:31→13:18)
[2023-09-22] MEDS: NOVOLIN R INSULIN INFUSION 100 IV (09:09)
[2023-09-22 09:36] LABS: Glucose - Point of Care 94 mg/dl (70-99)
--- NOTE | 2023-09-22 09:37 | W.PN.INTV ---
Today's Communication / Plan
Recommendations
Up OOB as tolerated
Maintain MAP>65
Pain control
Weaning off insulin gtt
CPAP with sleep for Hx of GEORGE
Patient is now CVICU�telemetry status. Research Compliance Specialist/pulmonary service will now sign off. Please reconsult if there are any additional questions/concerns, or if patient's respiratory status deteriorates.
Assessment
-
Assessment: 68-year-old male with a past medical history of nonobstructive CAD, moderate aortic stenosis, hypertrophic cardiomyopathy, history of ulcerative colitis, nephrolithiasis, GEORGE on CPAP hypertension and hyperlipidemia who presented to
[facility], with chest pain. Troponins were mildly elevated and heparin drip was started. Invasive coronary angiography was offered however he wanted to be transferred here to [place] for further management. He has known CAD with 50
to 60% RCA stenosis that was FFR negative. He was transferred here and repeat left heart cath on 09/18/2023 was done showing severe calcific aorta stenosis with a mean gradient of 46 mmHg, preserved LVEF at 64% with single-vessel CAD with 70% mid
RCA stenosis. Cardiothoracic surgery was consulted for further evaluation -intraoperative BRETT showed moderate�severe aortic stenosis with moderate AI, and a mild sessile atheroma seen in the descending aorta and distal arch. Today (09/21/2023), he
underwent CABG x 1 with aortic valve replacement. There were no complications, the patient was transferred to the CVICU postoperatively and critical care services now consulted for additional recommendations/management.
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
Impression:
#Moderate�severe aortic stenosis s/p aortic valve replacement with INSPIRIS RESILIA - POD#1
#NSTEMI with single-vessel CAD s/p CABG x 1 (GSV to RPDA) - POD#1
#Anemia
#CKD
#GEORGE on CPAP
Plan:
Patient already extubated to nasal cannula and is doing well, breathing comfortably on 2 L/min
Maintain SpO2 >94%
prn nebulized bronchodilators
Wean off O2 as tolerated keeping goal SpO2 as above
He uses CPAP for GEORGE --> not sure what his settings are. I ordered this for him for sleep, and hopefully he can tolerate this as he does have chest pain and may not want to use the CPAP
Pulmonary artery catheter removed
Replete electrolytes with K>4, Mg>2
Maintain MAP>65
Monitor chest tubes' output (mediastinal x2 to bulb)
Monitor hemoglobin
Monitor platelet count and coags
Transfuse blood product if needed - keep Hb>8g/dL and plt>50k
CT surgery managing chest tubes
Monitor blood sugar with goal BG 140-180mg/dL
Insulin drip per protocol - being weaned
Aspiration precautions
Encourage incentive spirometer
DVT prophylaxis
Early nutrition
Early mobilization
Patient is now CVICU�telemetry status. Research Compliance Specialist/pulmonary service will now sign off. Thank you for allowing us to be involved in the care of this patient. Please reconsult if there are any additional questions/concerns, or if patient's
respiratory status deteriorates.
Total time spent today was 55 minutes for this encounter. Time includes reviewing laboratory test/imaging results, reviewing pertinent medical records, obtaining and reviewing medical history, performing an appropriate exam, ordering medications,
tests and procedures. Time also includes documentation of this encounter, coordinating patient care and communicating with other healthcare professionals. Total time does not include separately billed tests performed on this date of service.
Data:
CXR 09-22-2023: Small bilateral pleural effusions with bibasilar probable atelectasis, slightly progressed.
CXR 09-21-2023:
1. Endotracheal tube at the level of the miroslava, recommend retraction.
2. Right internal jugular central venous catheter and chest drains in position. No pneumothorax.
3. Low lung volumes and basilar atelectatic changes.
Subjective Dataa
Subjective Data
Date of Service:
Date of Service: September 22, 2023
Chief Complaint: Research Compliance Specialist Follow Up
Subjective:
Patient seen this morning. He is doing well. Sitting up eating lunch, at bedside. He is on insulin drip at 0.7 units/h. Heart rate 91, BP 125/69. He is on 4 L/min saturating 92%. Mediastinal chest tubes X2 attached to bulb are in place.
Right-sided cordis also in place. He says his chest pain is better, denies shortness of breath, headache, fevers or chills.
Review of Systems
General: Other (Negative unless mentioned above)
Objective Data
Data Reviewed
Vital Signs / I&O / Oxygen:
Vital Signs
Temp Pulse Resp BP Pulse Ox
98.2 F 94 16 119/71 92
09/22/23 08:00 09/22/23 08:00 09/22/23 08:00 09/22/23 08:00 09/22/23 08:00
Intake and Output
09/21/23 09/22/23 09/23/23
06:59 06:59 06:59
Intake Total 1254.3 / 1254.3 13.6 / 13.6
Output Total 1365 / 1365 40 / 40
Balance -110.7 / -110.7 -26.4 / -26.4
SaO2 [CPAP] 98
SaO2 [SIMV] 95
SaO2 92
Nasal Cannula flow liters per 4
minute
Physical Exam
General: Respiratory Distress (negative) and Comfortable
HEENT: Normocephalic and Anicteric
Cardiovascular: S1-S2, Murmur (negative) and Peripheral Edema (negative)
Respiratory: Wheeze (negative), Crackles (Bibasilar), Rhonchi (negative) and Non-Labored Respirations
GI: Soft, Non Distended and Non Tender
Neurology: AO x 3
Skin: Warm, Dry and Cyanosis (negative)
Labs/Micro/Reports
Lab Data
09/22/23 03:22
09/22/23 03:22
Laboratory Results
09/21/23 09/21/23 09/21/23
12:11 15:15 21:06
PT 17.9 H
INR 1.49
APTT 39.6 H
pH 7.35 7.35 7.36
pCO2 40 34 L 32 L
pO2 136 H 128 H 129 H
HCO3 22.1 18.8 L 18.1 L
O2 Delivery Level
[2023-09-22 11:11] LABS: Glucose - Point of Care 90 mg/dl (70-99)
--- NOTE | 2023-09-22 11:51 | PTCARENOTE ---
assumed care of pt from previous shift RN, sinus rhythm on tele, VSS, Epicardial pacing wires intact. Right IJ cordis w kvo and nitro infusing, PIV w insulin infusing as per glycemic protocol. + peripheral pulses, trace edema to bilateral lower
extremities. Lungs diminished, pox 92% on 4L NC. Coughing and deep breathing encouraged. +bs, tolerating PO intake. Vanegas draining antonio. CT w minimal amount of drainage. Surgical dressings intact. Pt medicated for pain. plan of care reviewed and
questions encouraged.
[2023-09-22 13:13] LABS: Glucose - Point of Care 101 mg/dl (70-99)
[2023-09-22] MEDS: NSS IV (13:18)
[2023-09-22] MEDS: NORVASC 5 MG PO (13:19)
--- NOTE | 2023-09-22 13:31 | PTCARENOTE ---
Pleural CT removed as ordered, mediastinal tubes placed to bulbs, pacing wire insulated.
--- NOTE | 2023-09-22 14:45 | PTCARENOTE ---
insulin gtt d/c'ed, pt downgraded to tele
[2023-09-22 16:44] LABS: Glucose - Point of Care 167 mg/dl (70-99)
[2023-09-22] MEDS: NOVOLOG FLEXPEN-MODERATE RESISTANCE 1 UNITS SC (16:44)
[2023-09-22] MEDS: LOPRESSOR 25 MG PO (20:27)
[2023-09-22] MEDS: DILAUDID 0.25 MG IV (20:28)
--- NOTE | 2023-09-22 20:30 | PTCARENOTE ---
Patient received resting in bed. Patient A+A+Ox3. No neurological deficits noted. No c/o headache, dizziness or lightheadedness. No s/s of respiratory distress. O2 at 2L via NC. SaO2 90%. O2 increased to 3L. Chest tube dressing intact.
Mediastinal chest tubes x2 - Right Bulb 10 ml and Left Bulb 10 ml - Serosanguineous drainage - Empty and compress per protocol. Sinus Rhythm. Heart rate 70-80's. V-Wire insulated. Patient with no c/o chest pain, pressure or discomfort.
Normoactive bowel sounds. No BM. No c/o nausea. No vomiting. Vanegas catheter - Temperature sensing - Yellow urine. Patient with no c/o back or flank pain. Right I.J. Cordis - Intact and patent - Saline flush 10 ml/hr. Sternal Aquacell intact.
Right groin site intact. Right knee incision - Intact - Surgical adhesive. Assessment as documented.
[2023-09-22 22:43] LABS: Glucose - Point of Care 124 mg/dl (70-99)
[2023-09-23] VITALS (16 sets, daily range): BP systolic 97–143; BP diastolic 55–87; BMI 34.6
--- NOTE | 2023-09-23 00:30 | PTCARENOTE ---
Patient sleeping without difficulty. No changes from previous assessment.
[2023-09-23] MEDS: ULTRAM 50 MG PO ×2 (04:19→20:41)
--- NOTE | 2023-09-23 04:26 | W.PN.CT ---
Addendum entered and electronically signed by Daniel Brown MD 09/23/23 09:52:
I saw and examined the patient.
The PA's note was reviewed and I agree with the note.
Comment:
No major overnight events. Requiring O2 (4L NC)
D/C CTs
IS/OOB/ambulate, wean O2 as tolerated
Maintain cordis today
Creat 1.6 (baseline)/UO adequate - continue diuresis
ASA, no plavix, BB, amio, repatha (statin intolerant)
Original Note:
Today's Communication / Plan
-
Plan:
-No major issues overnight. Hemodynamically and neurologically intact
-Cont. current meds (ASA, Amiodarone, Lopressor, Lasix; Statin and Plavix intolerant)
-Consider d/c of chest tubes: 2meds split to R bulb 40/60 and L bulb 40/60
-D/C'd laguerre catheter this AM @ 0600
-Maintain temporary PW (will cut before d/c home)
-Maintain cordis another day
-Monitor h/h 7.01/20, likely hemodilutional d/t hypervolemia, will benefit from Lasix today
-Creatinine is @ baseline, 1.6
-Replete K, 3.7
-Encourage use of IS
-Wean off of O2 as tolerated
-OOB into chair/Ambulate
Assessment / Plan
-
Assessment:
-S/P AVR (#25 Inspiris)/CABG x 1 (GSV to RPDA)/Endoscopic harvest/prep of RLE GSV, by Dr. Brown, 09/21/23, pod#2
-Severe , moderate AI
-Single-vessel CAD (RCA)
-USA
-LVEF 60% preop, 65% postop per intraop BRETT
-HTN
-HLD (statin intolerant, on Repatha 140 mg SC Q2W)
-CKD3a
-Renal calculi
-Prediabetes (hgb A1C 6.0)
-Class 1 obesity (BMI 33.3)
-GEORGE (uses CPAP @ home)
-Gout (did not tolerate pharmacotherapy, currently diet controlled)
-Hx diverticulitis S/P partial colectomy, 2003
-Hx Ulcerative colitis S/P colectomy/colostomy with subsequent colostomy reversal, 2004
-S/P L rotator cuff repair
-S/P hernia repair
-S/P cholecystectomy
-Acute postop blood loss/Anemia (stable without blood transfusion)
-Acute postop thrombocytopenia (stable without active bleed)
-Acute postop atelectasis/pleural effusion
-Acute postop hypovolemia with subsequent hypervolemia
Discussed patient care with: Cardiology, Nursing, Respiratory Therapy, Pharmacy and Care Team
Subjective
Procedure
AVR (#25 Inspiris)/CABG x 1 (GSV to RPDA)/Endoscopic harvest/prep of RLE GSV, by Dr. Brown, 09/21/23
-
Date of Service: September 23, 2023
Pt c/o pleuritic chest pain, better following removal of right pleural chest tube yesterday, otherwise feels well
Objective Data
-
PT 17.9 Sec (11.4-14.6) H 09/21/23 12:11
INR 1.49 09/21/23 12:11
APTT 39.6 Sec (23.4-35.0) H 09/21/23 12:11
Vital Signs
Vital Signs
Temp Pulse Resp BP Pulse Ox
98.7 F 75 16 133/62 94
09/22/23 22:35 09/23/23 04:09 09/22/23 22:35 09/23/23 04:09 09/23/23 04:09
CT Intake/Output/Weight
09/22/23 09/22/23 09/23/23
06:59 18:59 06:59
Intake Total 400.9 / 1254.3 35.2 / 605.2 570 / 605.2
Output Total 630 / 1365 420 / 830 410 / 830
Balance -229.1 / -110.7 -384.8 / -224.8 160 / -224.8
SaO2: 94 (4L)
Physical Exam
-
General: Awake, Oriented and AOx3
Cardiovascular: Regular rate & rhythm, No Murmurs, No Rub and No Gallop
Respiratory: Decreased Breath Sounds (at bases, otherwise clear )
Sternum: Stable
Incision: Clean, Dry, Intact and Dressing Intact
Extremities: No Edema
Data Reviewed
-
Lab Results: Results Reviewed
Medications: Active Meds Reviewed
Chest X-Ray: Report Reviewed and Image Reviewed
ECG: Report Reviewed and Image Reviewed
[2023-09-23] MEDS: NSS 500 IV (04:35)
[2023-09-23 04:42] LABS: Hemoglobin 7.9 g/dL (13.0-18.0); Mean Corp Hgb Conc. 34.3 g/dL (33.0-37.0); Mean Corpuscular Hgb 29.4 pg (27.0-31.0); Mean Corpuscular Volume 85.5 fL (80.0-94.0); Mean Platelet Volume 9.4 fL (7.4-10.4); Platelet Count 125 10^3/uL (130-400); Red Blood Cell Count 2.69 10^6/uL (4.70-6.10); Red Cell Dist. Width 15.2 % (11.5-14.5); White Blood Cell Count 10.7 10^3/uL (4.8-10.8)
[2023-09-23 05:10] LABS: Blood Urea Nitrogen 35 mg/dl (9-20); Calcium 8.6 mg/dl (8.4-10.2); Carbon Dioxide 23 mmol/L (22-30); Chloride 107 mmol/L (98-107); Estimated Creatinine Clearance 50 ml/min; Glucose 112 mg/dl (70-99); Magnesium 2.1 mg/dl (1.6-2.3); Potassium 3.7 mmol/L (3.5-5.1); Sodium 138 mmol/L (135-145); eGFR 47.23
[2023-09-23] MEDS: KCL 40 MEQ PO ×2 (05:53→21:03)
[2023-09-23] MEDS: TYLENOL 1000 MG PO ×2 (05:53→22:42)
--- NOTE | 2023-09-23 06:15 | PTCARENOTE ---
Patient A+A+Ox3. No neurological deficits noted. Patient given CHG bath. Hair washed. Mediastinal bulbs emptied/compress (10 ml each). AM lab work collected and sent. Portable CXR completed. Vanegas catheter removed without difficulty - Due to
void by 12pm. Standing scale weight wearing socks - No sneakers - 97.2 kg. Patient to bathroom. Sat on toilet - No BM. Positive flatus. Small void. Patient brushed teeth and washed face. Patient now resting OOB in chair. K 3.7 - 40 mEq KCL
PO ordered and given without difficulty. Assessment/Interventions as documented.
--- NOTE | 2023-09-23 07:55 | PTCARENOTE ---
assumed care of pt from previous shift RN, sinus rhythm on tele, epicardial wire insulated, VSS, + peripheral pulses, trace edema to bilateral lower extremities. Lungs diminished, pox 96% on 2L NC. +bs, tolerating PO intake. Mediastinal CT x2 to
bulb w minimal amount of drainage. Cordis and PIV flush easily. plan of care reviewed w pt and questions encouraged.
[2023-09-23] MEDS: NOVOLOG FLEXPEN-MODERATE RESISTANCE SC ×2 (08:00→12:31)
[2023-09-23] MEDS: THERAGRAN 1 TABLET PO (08:32)
[2023-09-23] MEDS: NEURONTIN 100 MG PO ×3 (08:32→22:42)
[2023-09-23] MEDS: VITAMIN C 250 MG PO (08:32)
[2023-09-23] MEDS: SENOKOT-S 1 TABLET PO ×2 (08:32→20:41)
[2023-09-23] MEDS: PACERONE 200 MG PO ×3 (08:32→22:42)
[2023-09-23] MEDS: PROTONIX 40 MG PO (08:32)
[2023-09-23] MEDS: LOW STRENGTH ASPIRIN 81 MG PO (08:32)
[2023-09-23] MEDS: NORVASC 5 MG PO (08:32)
[2023-09-23] MEDS: LOPRESSOR 25 MG PO ×2 (08:32→20:41)
[2023-09-23] MEDS: FEOSOL 325 MG PO (08:32)
[2023-09-23] MEDS: LIDOCAINE 4% PATCH 1 PATCH TOPICAL (08:32)
[2023-09-23] MEDS: MAGNESIUM OXIDE 500 MG PO ×2 (08:32→20:41)
[2023-09-23] MEDS: BACTROBAN 2% OINTMENT 1 APPLIC NASAL ×2 (08:33→20:41)
[2023-09-23] MEDS: LASIX 40 MG IV (08:33)
[2023-09-23] MEDS: KCL 20 MEQ PO (08:37)
[2023-09-23] MEDS: LOPRESSOR 5 MG IV (10:20)
--- NOTE | 2023-09-23 10:28 | W.PN.UPDATE ---
Update Note
Progress Note Update
Patient noted to be in afib with RVR at 10:10 am. Rates in the 150s-180s. Patient asymptomatic. EKG obtained. Protocol initiated.
[2023-09-23] MEDS: LOPRESSOR 2.5 MG IV (10:44)
[2023-09-23] MEDS: CORDARONE 103 MG IV ×3 (10:49→15:53)
[2023-09-23] MEDS: MAGNESIUM SULFATE 50 IV (10:50)
[2023-09-23] MEDS: CORDARONE 518 MG IV (10:56)
--- NOTE | 2023-09-23 11:04 | PTCARENOTE ---
pt converted to rapid AF w HR 200's. Pt asymptomatic, assisted to bed, BP 101/70. CT PA at bedside. EKG obtained, 5mg Lopressor administered, labs drawn and sent. Additional 2.5mg Lopressor administered as ordered. Mg replaced, amiodarone bolus and
gtt via cordis. Current HR 130, BP 108/71.
Mediastinal CTs removed as ordered without incident.
[2023-09-23 11:31] LABS: Magnesium 2.1 mg/dl (1.6-2.3); Potassium 3.9 mmol/L (3.5-5.1)
[2023-09-23] MEDS: KCL 50 IV (12:31)
--- NOTE | 2023-09-23 12:47 | PTCARENOTE ---
pt rebolused chet riley and K replaced as ordered
[2023-09-23] MEDS: TYLENOL PO (14:54)
[2023-09-23 16:29] LABS: Glucose - Point of Care 185 mg/dl (70-99)
[2023-09-23] MEDS: NOVOLOG FLEXPEN-MODERATE RESISTANCE 1 UNITS SC (16:32)
[2023-09-23 20:19] LABS: Hematocrit 24.3 % (39.0-52.0); Hemoglobin 8.4 g/dL (13.0-18.0); Mean Corp Hgb Conc. 34.6 g/dL (33.0-37.0); Mean Corpuscular Hgb 29.2 pg (27.0-31.0); Mean Corpuscular Volume 84.4 fL (80.0-94.0); Mean Platelet Volume 9.2 fL (7.4-10.4); Platelet Count 162 10^3/uL (130-400); Red Blood Cell Count 2.88 10^6/uL (4.70-6.10); Red Cell Dist. Width 15.2 % (11.5-14.5)
[2023-09-23 20:31] LABS: Blood Urea Nitrogen 31 mg/dl (9-20); Calcium 8.4 mg/dl (8.4-10.2); Carbon Dioxide 24 mmol/L (22-30); Chloride 105 mmol/L (98-107); Estimated Creatinine Clearance 53 ml/min; Glucose 133 mg/dl (70-99); Magnesium 2.3 mg/dl (1.6-2.3); Potassium 3.8 mmol/L (3.5-5.1); Sodium 138 mmol/L (135-145); eGFR 51.03
--- NOTE | 2023-09-23 21:15 | PTCARENOTE ---
Patient A+A+Ox3. No neurological deficits noted. No c/o headache, dizziness or lightheadedness. No s/s of respiratory distress. O2 at 3L via NC. SaO2 94%. Chest tube dressing intact. Atrial Fibrillation - Heart rate 120-130's then converted
to Sinus Rhythm - Heart rate 70's. Blood pressure 123/55 (75). No c/o chest pain, pressure or discomfort. Continues on Amiodarone gtt 0.5 mg/min (16.7 ml/hr). V-Wire insulated. Abdomen soft, round, nontender. Normoactive bowel sounds. No BM.
No c/o nausea. No vomiting. Voiding without difficulty. Lab work ordered, collected and sent per PA order. K 3.8 - 40 mEq KCL PO ordered and administered without difficulty. Sternal Aquacell dressing intact. Right groin puncture site - Intact
- Open to air. Right knee incision - Intact - Surgical adhesive - Open to air. Patient with no c/o back or flank pain. Assessment as documented.
[2023-09-24] VITALS (12 sets, daily range): BP systolic 108–138; BP diastolic 61–83; PULSE 87; BMI 34.5
--- NOTE | 2023-09-24 00:30 | PTCARENOTE ---
Patient sleeping without difficulty. No further changes from previous assessment.
--- NOTE | 2023-09-24 04:22 | W.PN.CT ---
Addendum entered and electronically signed by Daniel Brown MD 09/24/23 10:34:
I saw and examined the patient.
The PA's note was reviewed and I agree with the note.
Comment:
POD#3 s/p CABG x 1/AVR
AF yesterday, given protocol, converted to NSR at 8pm - remains in sinus
Continue ASA, BB, amio, (statin intolerance)
Maintain cordis until tomorrow
OOB/IS/ambulate
Original Note:
Today's Communication / Plan
-
Plan:
-No major issues overnight. Hemodynamically and neurologically intact
-Pt with A-Fib with RVR x ~ 10 hrs yesterday 09/22, currently on Amiodarone gtt @ 0.5 mcg/min per protocol. Lopressor increased to 50 mg BID
-Will likely require DOAC/NOAC if further a-fib, does not have LA Appendage clip
-Cont. current meds (ASA, Amiodarone, Lopressor, Lasix; Statin and Plavix intolerant)
-Maintain cordis another day after completion of Amiodarone gtt in case of further a-fib requiring further Amiodarone gtt
-Maintain temporary PW (will cut before d/c home)
-Monitor h/h 8.2/24.1, was 7.9/23 yesterday, likely hemodilutional d/t hypervolemia, will cont. Lasix today
-Creatinine is @ baseline, 1.4 today, was 1.6 yesterday (baseline 1.2-1.6)
-Encourage use of IS
-Wean off of O2 as tolerated, currently on 3L of NC with O2 sats of 94%
-OOB into chair/Ambulate
-Home in 1-2 days
Assessment / Plan
-
Assessment:
-S/P AVR (#25 Inspiris)/CABG x 1 (GSV to RPDA)/Endoscopic harvest/prep of RLE GSV, by Dr. Brown, 09/21/23, pod#3
-Severe , moderate AI
-Single-vessel CAD (RCA)
-USA
-LVEF 60% preop, 65% postop per intraop BRETT
-HTN
-HLD (statin intolerant, on Repatha 140 mg SC Q2W)
-CKD3a
-Renal calculi
-Prediabetes (hgb A1C 6.0)
-Class 1 obesity (BMI 33.3)
-GEORGE (uses CPAP @ home)
-Gout (did not tolerate pharmacotherapy, currently diet controlled)
-Hx diverticulitis S/P partial colectomy, 2003
-Hx Ulcerative colitis S/P colectomy/colostomy with subsequent colostomy reversal, 2004
-S/P L rotator cuff repair
-S/P hernia repair
-S/P cholecystectomy
-Acute postop blood loss/Anemia (stable without blood transfusion)
-Acute postop thrombocytopenia (stable without active bleed)
-Acute postop atelectasis/pleural effusion
-Acute postop hypovolemia with subsequent hypervolemia
-Acute postop a-fib with RVR (x 10hrs on POD#2)
Discussed patient care with: Cardiology, Nursing, Respiratory Therapy, Pharmacy and Care Team
Subjective
Procedure
AVR (#25 Inspiris)/CABG x 1 (GSV to RPDA)/Endoscopic harvest/prep of RLE GSV, by Dr. Brown, 09/21/23
-
Date of Service: September 24, 2023
Pt c/o mild incisional pain, otherwise feels well
Objective Data
-
PT 17.9 Sec (11.4-14.6) H 09/21/23 12:11
INR 1.49 09/21/23 12:11
APTT 39.6 Sec (23.4-35.0) H 09/21/23 12:11
Vital Signs
Vital Signs
Temp Pulse Resp BP Pulse Ox
98.7 F 76 16 124/65 94
09/23/23 22:40 09/24/23 02:00 09/23/23 22:40 09/23/23 22:42 09/23/23 22:40
CT Intake/Output/Weight
09/23/23 09/23/23 09/24/23
06:59 18:59 06:59
Intake Total 600 / 635.2 533.2 / 1013.5 480.3 / 1013.5
Output Total 565 / 985 1000 / 1400 400 / 1400
Balance 35 / -349.8 -466.8 / -386.5 80.3 / -386.5
SaO2: 94 (3)
Physical Exam
-
General: Awake, Oriented and AOx3
Cardiovascular: Regular rate & rhythm, No Murmurs, No Rub and No Gallop
Respiratory: Decreased Breath Sounds (at bases, otherwise clear)
Sternum: Stable
Incision: Clean, Dry, Intact and Dressing Intact
Extremities: Other (+trace edema)
Data Reviewed
-
Lab Results: Results Reviewed
Medications: Active Meds Reviewed
Chest X-Ray: Report Reviewed and Image Reviewed
ECG: Report Reviewed and Image Reviewed
[2023-09-24 05:01] LABS: Hematocrit 24.1 % (39.0-52.0); Hemoglobin 8.2 g/dL (13.0-18.0); Mean Corpuscular Hgb 28.9 pg (27.0-31.0); Mean Corpuscular Volume 84.9 fL (80.0-94.0); Mean Platelet Volume 9.6 fL (7.4-10.4); Platelet Count 162 10^3/uL (130-400); Red Blood Cell Count 2.84 10^6/uL (4.70-6.10); Red Cell Dist. Width 14.9 % (11.5-14.5); White Blood Cell Count 9.5 10^3/uL (4.8-10.8)
--- NOTE | 2023-09-24 05:30 | PTCARENOTE ---
Patient A+A+Ox3. No neurological deficits noted. No c/o pain or discomfort. Sinus Rhythm. Heart rate 70-80's. Blood pressure 114/63. 2L O2 - SaO2 93%. I.S. 1500 ml. AM lab work collected and sent. Patient given CHG bath and linens changed.
Chest tube dressing changed. Patient to bathroom - Minimal assistance. Voided 250 ml. Brushed teeth and washed face. Standing scale weight 96.8 kg. Patient now resting in chair watching television. Right I.J. Cordis intact. Amiodarone gtt
continues at 0.5 mg/min (16.7 ml/hr). Assessment/Interventions as documented.
[2023-09-24 05:33] LABS: Blood Urea Nitrogen 29 mg/dl (9-20); Calcium 8.4 mg/dl (8.4-10.2); Carbon Dioxide 24 mmol/L (22-30); Chloride 105 mmol/L (98-107); Estimated Creatinine Clearance 57 ml/min; Glucose 116 mg/dl (70-99); Magnesium 2.3 mg/dl (1.6-2.3); Sodium 137 mmol/L (135-145); eGFR 55.43
[2023-09-24] MEDS: TYLENOL PO ×2 (05:50→15:34)
--- NOTE | 2023-09-24 07:00 | PTCARENOTE ---
Bedside walking rounds . Amio gtt till 5pm. NSR. Room air. See flowrecord for remaining assessments.
[2023-09-24 08:15] LABS: Glucose - Point of Care 131 mg/dl (70-99)
[2023-09-24] MEDS: NOVOLOG FLEXPEN-MODERATE RESISTANCE SC ×3 (08:18→17:22)
[2023-09-24] MEDS: BACTROBAN 2% OINTMENT 1 APPLIC NASAL ×2 (08:27→20:03)
[2023-09-24] MEDS: PACERONE 200 MG PO ×2 (08:28→16:04)
[2023-09-24] MEDS: NEURONTIN 100 MG PO ×3 (08:28→21:27)
[2023-09-24] MEDS: MAGNESIUM OXIDE 500 MG PO ×2 (08:28→20:04)
[2023-09-24] MEDS: KCL 20 MEQ PO ×2 (08:29→20:04)
[2023-09-24] MEDS: LOW STRENGTH ASPIRIN 81 MG PO (08:29)
[2023-09-24] MEDS: FEOSOL 325 MG PO (08:29)
[2023-09-24] MEDS: LOPRESSOR 50 MG PO (08:29)
[2023-09-24] MEDS: PROTONIX 40 MG PO (08:29)
[2023-09-24] MEDS: THERAGRAN 1 TABLET PO (08:29)
[2023-09-24] MEDS: VITAMIN C 250 MG PO (08:30)
[2023-09-24] MEDS: LASIX 40 MG IV ×2 (08:30→16:03)
[2023-09-24] MEDS: LIDOCAINE 4% PATCH 1 PATCH TOPICAL (08:30)
[2023-09-24] MEDS: SENOKOT-S PO ×2 (08:32→20:04)
--- NOTE | 2023-09-24 10:07 | W.PN.CD ---
Today's Communication / Plan
-
OOB ambulate as able
Impression / Plan
-
Impression/Plan: 68 y/o, PMH sig for elevated calcium score in 2021, moderate , HTN, statin intolerant HLD, NIDDM, CKD3a w/baseline creat 1.4, Gout, UC, obesity, Colon CA s/p partial colectomy (2003) and moderate non obstructive CAD in LAD, [facility] progressive exertional chest pain, DARDEN, diaphoresis, relieved with rest.
CAD and
- S/p AVR CABG
- Post op EKG and intraop BRETT both good
- Doing well
- 10 hrs of a fib on amio gtt
- increased BB
Acute blood loss anemia from procedure
HTN
Mixed hyperlipidemia
CKD3a
Prediabetes
PCP: Jesus Palmer MD
CDY: Jeanie Friedman MD
Subjective:
feeling better pain controlled OOB and walking
Physical Exam
Vital Signs/Labs
Vital Signs
Temp Pulse Resp BP Pulse Ox
98.5 F 87 18 130/73 97
09/24/23 08:00 09/24/23 08:00 09/24/23 08:00 09/24/23 08:00 09/24/23 08:00
09/23/23 09/24/23 09/25/23
06:59 06:59 06:59
Actual Weight 214 lb 4.629 oz 213 lb 6.519 oz
09/24/23 04:42
09/24/23 04:42
PT 17.9 Sec (11.4-14.6) H 09/21/23 12:11
INR 1.49 09/21/23 12:11
APTT 39.6 Sec (23.4-35.0) H 09/21/23 12:11
Magnesium 2.3 mg/dl (1.6-2.3) 09/24/23 04:42
Physical Exam
Constitutional: No acute distress
EENT: Anicteric
Cardiovascular: Rhythm & rate is regular and Pedal edema is absent
Respiratory: Respiratory effort normal and Lungs clear to auscul.
GI: Soft
Neuro/Psych: AO x 3
Data Reviewed
-
Date of Service: September 24, 2023
EKG: Tracing Personally Visualized and interpreted (sr)
Echo: Report Reviewed by me
Labs: Labs Reviewed by me
--- NOTE | 2023-09-24 12:00 | PTCARENOTE ---
No acute changes. NSR. Anbulated 450feet on room air. Will do steps.
[2023-09-24 13:00] LABS: Glucose - Point of Care 115 mg/dl (70-99)
--- NOTE | 2023-09-24 14:00 | PTCARENOTE ---
No acute changes. Patient taken on steps 12 total with assist of PT. Tolerated well.
[2023-09-24] MEDS: NSS IV (15:33)
--- NOTE | 2023-09-24 16:00 | PTCARENOTE ---
No acute changes. Vitals stable. OOB in chair.
[2023-09-24 17:26] LABS: Glucose - Point of Care 115 mg/dl (70-99)
[2023-09-24] MEDS: LOPRESSOR 5 MG IV (17:40)
--- NOTE | 2023-09-24 20:00 | PTCARENOTE ---
Received pt from dayshift; pt resting comfortably in bed, pt denies, AAOX4, standby assist to ambulate; NSR on monitor, VSS; Heart sounds audible, radial and DP pulses palpable, temp epicardial V wire insulated; lung sounds CTA, diminished at b/l
bases, spo2 91% on RA; + BS x4 quadrants, abdomen soft non tender; pt voiding clear yellow urine; surgical sites maintained; right IJ cordis and PIV patent and maintained; call ji within reach; will continue to monitor.
[2023-09-24] MEDS: TOPROL XL 50 MG PO (20:04)
[2023-09-24] MEDS: PACERONE 400 MG PO (21:27)
[2023-09-24] MEDS: TYLENOL 1000 MG PO (21:27)
[2023-09-24 21:31] LABS: Glucose - Point of Care 119 mg/dl (70-99)
[2023-09-25] VITALS (26 sets, daily range): BP systolic 105–156; BP diastolic 60–93; BMI 33.4
--- NOTE | 2023-09-25 | PTCARENOTE ---
Pt assessment unchanged; NSR on monitor with prolonged QT interval , VSS; pt resting comfortably in bed; 2 LNC overnight, pt uses CPAP at home; CVPA held future stool softeners and magnesium due to multiple BMs; 2200 dose of PO amiodarone was
increased to 400mg due to previous Afib; call ji within reach; will continue to monitor.
--- NOTE | 2023-09-25 04:00 | PTCARENOTE ---
Pt assessment unchanged; NSR on monitor, VSS; pt had multiple short episodes of SVT while ambulating to the bathroom, BP remained stable, CVPA aware; call ji within reach; will continue to monitor.
--- NOTE | 2023-09-25 04:13 | W.PN.CT ---
Addendum entered and electronically signed by Kami Burton PA-C 09/25/23 07:37:
Pt had self limited Afib overnight x2, and now back in sustained afib with RVR as of 629. IV amio bolus x1 & gtt ordered and IV lopressor given. Likely will start ivett arnold, will d/w attending.
Original Note:
Today's Communication / Plan
-
Plan:
-No major issues overnight. Hemodynamically and neurologically intact
-No further A-Fib since the 10hrs on POD#2. Did have a brief (< 1 min) SVT while in the bathroom this AM. On PO Amiodarone and Toprol XL
-Will likely require DOAC/NOAC if further a-fib, does not have LA Appendage clip
-Cont. current meds (ASA, Amiodarone, Lopressor; Statin and Plavix intolerant)
-Was diuresed with a total of 80 mg IV Lasix yesterday, avoid Lasix today as pt appears euvolemic
-Replete K, 3.7
-D/C cordis
-F/U 2-view cxr
-Encourage use of IS
-OOB into chair/Ambulate
-Maintain temporary PW (will cut before d/c home)
-H/h stable @ 9.3/27.4
-Creatinine is @ baseline, 1.6 today, was 1.4 yesterday (baseline 1.2-1.6)
-Home today vs tomorrow ( won't be able to pick him up until 4 pm today)
Assessment / Plan
-
Assessment:
-S/P AVR (#25 Inspiris)/CABG x 1 (GSV to RPDA)/Endoscopic harvest/prep of RLE GSV, by Dr. Brown, 09/21/23, pod#4
-Severe , moderate AI
-Single-vessel CAD (RCA)
-USA
-LVEF 60% preop, 65% postop per intraop BRETT
-HTN
-HLD (statin intolerant, on Repatha 140 mg SC Q2W)
-CKD3a
-Renal calculi
-Prediabetes (hgb A1C 6.0)
-Class 1 obesity (BMI 33.3)
-GEORGE (uses CPAP @ home)
-Gout (did not tolerate pharmacotherapy, currently diet controlled)
-Hx diverticulitis S/P partial colectomy, 2003
-Hx Ulcerative colitis S/P colectomy/colostomy with subsequent colostomy reversal, 2004
-S/P L rotator cuff repair
-S/P hernia repair
-S/P cholecystectomy
-Acute postop blood loss/Anemia (stable without blood transfusion)
-Acute postop thrombocytopenia (stable without active bleed)
-Acute postop atelectasis/pleural effusion
-Acute postop hypovolemia with subsequent hypervolemia
-Acute postop a-fib with RVR (x 10hrs on POD#2)
Discussed patient care with: Cardiology, Nursing, Respiratory Therapy, Pharmacy and Care Team
Subjective
Procedure
AVR (#25 Inspiris)/CABG x 1 (GSV to RPDA)/Endoscopic harvest/prep of RLE GSV, by Dr. Brown, 09/21/23
-
Date of Service: September 25, 2023
Pt c/o mild incisional pain, otherwise feels well. Ambulating the halls without difficulty. Had a BM
Objective Data
-
PT 17.9 Sec (11.4-14.6) H 09/21/23 12:11
INR 1.49 09/21/23 12:11
APTT 39.6 Sec (23.4-35.0) H 09/21/23 12:11
Vital Signs
Vital Signs
Temp Pulse Resp BP Pulse Ox
99.5 F 74 18 111/60 98
09/25/23 00:00 09/25/23 00:04 09/25/23 00:00 09/25/23 00:04 09/25/23 00:04
CT Intake/Output/Weight
09/24/23 09/24/23 09/25/23
06:59 18:59 06:59
Intake Total 800.4 / 1333.6 1211.8 / 1211.8
Output Total 650 / 1650 1075 / 1425 350 / 1425
Balance 150.4 / -316.4 136.8 / -213.2 -350 / -213.2
SaO2: 98 (2L)
Physical Exam
-
General: Awake, Oriented and AOx3
Cardiovascular: Regular rate & rhythm, No Murmurs, No Rub and No Gallop
Respiratory: Decreased Breath Sounds (at bases, otherwise clear)
Sternum: Stable
Incision: Clean, Dry, Intact and Dressing Intact
Extremities: No Edema
Data Reviewed
-
Lab Results: Results Reviewed
Medications: Active Meds Reviewed
Chest X-Ray: Report Reviewed and Image Reviewed
ECG: Report Reviewed and Image Reviewed
[2023-09-25 04:40] LABS: Hematocrit 27.4 % (39.0-52.0); Hemoglobin 9.3 g/dL (13.0-18.0); Mean Corp Hgb Conc. 33.9 g/dL (33.0-37.0); Mean Corpuscular Volume 85.4 fL (80.0-94.0); Mean Platelet Volume 9.2 fL (7.4-10.4); Platelet Count 205 10^3/uL (130-400); Red Blood Cell Count 3.21 10^6/uL (4.70-6.10); Red Cell Dist. Width 14.8 % (11.5-14.5); White Blood Cell Count 7.4 10^3/uL (4.8-10.8)
[2023-09-25 05:03] LABS: Blood Urea Nitrogen 33 mg/dl (9-20); Calcium 8.8 mg/dl (8.4-10.2); Carbon Dioxide 27 mmol/L (22-30); Chloride 103 mmol/L (98-107); Estimated Creatinine Clearance 49 ml/min; Glucose 106 mg/dl (70-99); Magnesium 2.2 mg/dl (1.6-2.3); Potassium 3.7 mmol/L (3.5-5.1); Sodium 139 mmol/L (135-145); eGFR 47.23
[2023-09-25] MEDS: KCL 40 MEQ PO ×2 (05:35→22:20)
[2023-09-25] MEDS: TYLENOL 1000 MG PO ×2 (05:35→21:03)
[2023-09-25] MEDS: LOPRESSOR 5 MG IV ×2 (06:46→09:51)
--- NOTE | 2023-09-25 07:00 | PTCARENOTE ---
Bedside walking rounds report received. Patient seen on rounds oob in chair on 2L nasal canula titrated to room air. Remains in rapid a fibb/a tach with rated 140's to 150's: maintaing BP's with same: denies lightheadedness at rest. [id number] IVP
being given by nightshift RN. Denies pain. Can feel heart beating fast. Epicardial temp v wire remains insulated with medrtronic box readily availiable in room for pacing if needed. See flowrecord for remaining assessments. Will give amio bolus and
initiate amio gtt when ready per ct surg new orders.
[2023-09-25] MEDS: CORDARONE 103 MG IV ×2 (07:15→09:07)
[2023-09-25] MEDS: CORDARONE 518 MG IV (07:25)
[2023-09-25] MEDS: NEURONTIN 100 MG PO ×3 (07:36→21:03)
[2023-09-25] MEDS: LOW STRENGTH ASPIRIN 81 MG PO (07:36)
[2023-09-25] MEDS: FEOSOL 325 MG PO (07:36)
[2023-09-25] MEDS: PROTONIX 40 MG PO (07:36)
[2023-09-25] MEDS: THERAGRAN 1 TABLET PO (07:36)
[2023-09-25] MEDS: VITAMIN C 250 MG PO (07:36)
[2023-09-25] MEDS: TOPROL XL 50 MG PO (07:37)
[2023-09-25] MEDS: BACTROBAN 2% OINTMENT 1 APPLIC NASAL (07:37)
[2023-09-25] MEDS: NOVOLOG FLEXPEN-MODERATE RESISTANCE 1 UNITS SC ×2 (07:50→17:33)
[2023-09-25 07:53] LABS: Glucose - Point of Care 163 mg/dl (70-99)
[2023-09-25] MEDS: ELIQUIS 5 MG PO ×2 (08:42→21:04)
--- NOTE | 2023-09-25 08:42 | W.PN.CD ---
Today's Communication / Plan
-
IV amiodarone
eliquis
Impression / Plan
-
Impression/Plan: 68 y/o, PMH sig for elevated calcium score in 2021, moderate , HTN, statin intolerant HLD, NIDDM, CKD3a w/baseline creat 1.4, Gout, UC, obesity, Colon CA s/p partial colectomy (2003) and moderate non obstructive CAD in LAD, RCA at
prior cath (2021) transferred [facility] with with 2 week history progressive exertional chest pain, DARDEN, diaphoresis, relieved with rest.
CAD and
- s/p AVR and CABG
- intra op BRETT: EF 65%
- cont ASA 81mg
Post op A fib, paroxysmal
-back in A fib again: IV amiodarone for rhythm control
-cont Toprol XL
-CHADS2-VASC= 4. Eliquis 5mg bid started for OAC
HTN
Mixed hyperlipidemia: statin
CKD3a
PCP: Jesus Palmer MD
CDY: Jeanie Friedman MD
Subjective:
Feels palps: back in A fib
Physical Exam
Vital Signs/Labs
Vital Signs
Temp Pulse Resp BP Pulse Ox
98.1 F 126 20 124/87 99
09/25/23 07:32 09/25/23 07:32 09/25/23 07:32 09/25/23 07:32 09/25/23 07:32
09/24/23 09/25/23 09/26/23
06:59 06:59 06:59
Actual Weight 96.8 kg 93.8 kg
09/25/23 04:35
09/25/23 04:35
PT 17.9 Sec (11.4-14.6) H 09/21/23 12:11
INR 1.49 09/21/23 12:11
APTT 39.6 Sec (23.4-35.0) H 09/21/23 12:11
Magnesium 2.2 mg/dl (1.6-2.3) 09/25/23 04:35
Physical Exam
Constitutional: No acute distress
EENT: Moist mucous membranes
Cardiovascular: Pedal edema is absent, JVD pressure is normal, Systolic murmur absent and Rhythm/rate is irregular
Respiratory: Respiratory effort normal and Lungs clear to auscul.
GI: Soft
Neuro/Psych: AO x 3
Data Reviewed
-
Date of Service: September 25, 2023
EKG: Other (Tele: A fib 120s)
Labs: Labs Reviewed by me
[2023-09-25] MEDS: LIDOCAINE 4% PATCH TOPICAL (08:44)
[2023-09-25] MEDS: NSS 500 IV (09:07)
--- NOTE | 2023-09-25 12:00 | PTCARENOTE ---
No acute changes. Remains in atrial tach/rapid afibb despite multimodal treatments. Amio gtt per protocol.Digoxin loading dose added
[2023-09-25] MEDS: LANOXIN 500 MCG IV (12:28)
[2023-09-25] MEDS: NOVOLOG FLEXPEN-MODERATE RESISTANCE SC (13:30)
[2023-09-25 13:32] LABS: Glucose - Point of Care 115 mg/dl (70-99)
[2023-09-25] MEDS: TYLENOL PO (14:40)
[2023-09-25] MEDS: CARDIZEM 5 MG IV (15:31)
--- NOTE | 2023-09-25 16:00 | PTCARENOTE ---
No acute changes. OOB in chair. Dr. Brown in: plan to maintain all current treatments and make NPO after midnight for cardioversion in am.
[2023-09-25] MEDS: LANOXIN 250 MCG IV ×2 (16:05→21:02)
--- NOTE | 2023-09-25 16:20 | CM ---
dc plans remain home when medically stable and f/u with CT Transitional care nurse.
--- NOTE | 2023-09-25 16:23 | CM ---
alicja root for pt at his [facility], the copay is $50/month, 30 day free coupon put in pts red dc folder. they have it in stock.
[2023-09-25 17:37] LABS: Glucose - Point of Care 155 mg/dl (70-99)
[2023-09-25] MEDS: TOPROL XL 100 MG PO (18:08)
--- NOTE | 2023-09-25 19:00 | PTCARENOTE ---
assumed care of patient @ 190. received pt laying in bed, AOX3. no c/o pain or nausea. Converted to NSR during shift change 1851. NSR currently in the 90s. BP 130/61. Lungs clear, diminished on room air satting 94 %. Hx colectomy so has frequent
loose stools after meals. voiding clear yellow urine spontaneously. All surgical sites CDI. Cordis with amio at 0.5, R AC PIV patent. pt resting comfortably in bed with call ji within reach.
[2023-09-25 21:37] LABS: Blood Urea Nitrogen 34 mg/dl (9-20); Calcium 8.5 mg/dl (8.4-10.2); Carbon Dioxide 25 mmol/L (22-30); Chloride 103 mmol/L (98-107); Estimated Creatinine Clearance 46 ml/min; Glucose 121 mg/dl (70-99); Potassium 3.8 mmol/L (3.5-5.1); Sodium 136 mmol/L (135-145); eGFR 43.91
[2023-09-26] VITALS (9 sets, daily range): BP systolic 126–159; BP diastolic 65–78; PULSE 90; BMI 33.3
--- NOTE | 2023-09-26 | PTCARENOTE ---
no additional change in assessment. patient resting comfortably. will continue to monitor.
--- NOTE | 2023-09-26 | PTCARENOTE ---
VSS no change in assessment pt resting comfortably
[2023-09-26 04:29] LABS: Hematocrit 26.7 % (39.0-52.0); Hemoglobin 8.7 g/dL (13.0-18.0); Mean Corp Hgb Conc. 32.6 g/dL (33.0-37.0); Mean Platelet Volume 9.2 fL (7.4-10.4); Platelet Count 229 10^3/uL (130-400); Red Cell Dist. Width 14.6 % (11.5-14.5); White Blood Cell Count 8.6 10^3/uL (4.8-10.8)
--- NOTE | 2023-09-26 04:30 | W.PN.CT ---
Today's Communication / Plan
-
Plan:
-No major issues overnight. Hemodynamically and neurologically intact
-Pt with postop PAF, currently on Amiodarone gtt. Received Amiodarone boluses, IV/PO Lopressor, IV Cardizem, and Digoxin before converting yesterday 09/24 @ 1853 following the second episode of A-fib with RVR
-Started on Eliquis
-Currently NPO, for DCCV if further PAF this AM
-Cont. current meds (ASA, Amiodarone, Toprol XL; Statin and Plavix intolerant)
-D/C cordis later today, should be off Amiodarone gtt by 0800
-F/U 2-view cxr
-Encourage use of IS
-OOB into chair/Ambulate
-Maintain temporary PW (will cut before d/c home)
-H/h stable @ 8.7/26.7
-Creatinine is @ baseline, 1.5 today, was 1.6/1.7 yesterday (baseline 1.2-1.6)
-Home likely tomorrow
Assessment / Plan
-
Assessment:
-S/P AVR (#25 Inspiris)/CABG x 1 (GSV to RPDA)/Endoscopic harvest/prep of RLE GSV, by Dr. Brown, 09/21/23, pod#5
-Severe , moderate AI
-Single-vessel CAD (RCA)
-USA
-LVEF 60% preop, 65% postop per intraop BRETT
-HTN
-HLD (statin intolerant, on Repatha 140 mg SC Q2W)
-CKD3a
-Renal calculi
-Prediabetes (hgb A1C 6.0)
-Class 1 obesity (BMI 33.3)
-GEORGE (uses CPAP @ home)
-Gout (did not tolerate pharmacotherapy, currently diet controlled)
-Hx diverticulitis S/P partial colectomy, 2003
-Hx Ulcerative colitis S/P colectomy/colostomy with subsequent colostomy reversal, 2004
-S/P L rotator cuff repair
-S/P hernia repair
-S/P cholecystectomy
-Acute postop blood loss/Anemia (stable without blood transfusion)
-Acute postop thrombocytopenia (stable without active bleed)
-Acute postop atelectasis/pleural effusion
-Acute postop hypovolemia with subsequent hypervolemia
-Acute postop a-fib with RVR (x 10hrs on POD#2)
-Acute postop SVT/PAT
Discussed patient care with: Cardiology, Nursing, Respiratory Therapy, Pharmacy and Care Team
Subjective
Procedure
AVR (#25 Inspiris)/CABG x 1 (GSV to RPDA)/Endoscopic harvest/prep of RLE GSV, by Dr. Brown, 09/21/23
-
Date of Service: September 26, 2023
Pt c/o mild incisional pain, otherwise feels well
Objective Data
-
PT 17.9 Sec (11.4-14.6) H 09/21/23 12:11
INR 1.49 09/21/23 12:11
APTT 39.6 Sec (23.4-35.0) H 09/21/23 12:11
Vital Signs
Vital Signs
Temp Pulse Resp BP Pulse Ox
98.6 F 72 13 141/73 98
09/26/23 00:00 09/26/23 04:00 09/26/23 00:00 09/26/23 00:15 09/26/23 00:15
CT Intake/Output/Weight
09/25/23 09/25/23 09/26/23
06:59 18:59 06:59
Intake Total 1786.6 / 2266.6 480 / 2266.6
Output Total 625 / 1700 550 / 750 200 / 750
Balance -625 / -488.2 1236.6 / 1516.6 280 / 1516.6
SaO2: 98 (2L)
Physical Exam
-
General: Awake, Oriented and AOx3
Cardiovascular: Regular rate & rhythm
Respiratory: Decreased Breath Sounds
Sternum: Stable
Incision: Clean, Dry and Intact
Extremities: No Edema
Data Reviewed
-
Lab Results: Results Reviewed
Medications: Active Meds Reviewed
Chest X-Ray: Report Reviewed and Image Reviewed
CT Scan: Report Reviewed and Image Reviewed
ECG: Report Reviewed and Image Reviewed
--- NOTE | 2023-09-26 04:40 | PTCARENOTE ---
labs drawn and sent, pt resting comfortably no change in assessment .
[2023-09-26 04:52] LABS: Blood Urea Nitrogen 31 mg/dl (9-20); Calcium 8.2 mg/dl (8.4-10.2); Carbon Dioxide 26 mmol/L (22-30); Chloride 107 mmol/L (98-107); Estimated Creatinine Clearance 52 ml/min; Glucose 101 mg/dl (70-99); Potassium 4.2 mmol/L (3.5-5.1); Sodium 139 mmol/L (135-145); eGFR 51.03
--- NOTE | 2023-09-26 07:43 | W.PN.CD ---
Today's Communication / Plan
-
PO Amiodarone
Eliquis
cont metoprolol
Impression / Plan
-
Impression/Plan: 68 y/o, PMH sig for elevated calcium score in 2021, moderate , HTN, statin intolerant HLD, NIDDM, CKD3a w/baseline creat 1.4, Gout, UC, obesity, Colon CA s/p partial colectomy (2003) and moderate non obstructive CAD in LAD, RCA at
prior cath (2021) transferred [facility] with with 2 week history progressive exertional chest pain, DARDEN, diaphoresis, relieved with rest.
CAD and
- s/p AVR and CABG
- intra op BRETT: EF 65%
- cont ASA 81mg
Post op A fib, paroxysmal now back in SR September 25
-amio PO for discharge
-cont Toprol XL
-CHADS2-VASC= 4. Eliquis 5mg bid started for OAC
HTN
Mixed hyperlipidemia: statin
CKD3a
PCP: Jesus Palmer MD
CDY: Jeanie Friedman MD
Subjective:
Feeling better spontaneous CV back to SR
Physical Exam
Vital Signs/Labs
Vital Signs
Temp Pulse Resp BP Pulse Ox
98.9 F 73 12 132/66 98
09/26/23 04:00 09/26/23 04:21 09/26/23 04:00 09/26/23 04:21 09/26/23 04:38
09/25/23 09/26/23 09/27/23
06:59 06:59 06:59
Actual Weight 206 lb 12.697 oz 206 lb 2.115 oz
09/26/23 04:17
09/26/23 04:17
PT 17.9 Sec (11.4-14.6) H 09/21/23 12:11
INR 1.49 09/21/23 12:11
APTT 39.6 Sec (23.4-35.0) H 09/21/23 12:11
Magnesium 2.0 mg/dl (1.6-2.3) 09/26/23 04:17
Physical Exam
Constitutional: No acute distress
EENT: Anicteric
Cardiovascular: Rhythm & rate is regular and Pedal edema is absent
Respiratory: Respiratory effort normal and Lungs clear to auscul.
GI: Soft
Neuro/Psych: AO x 3
Data Reviewed
-
Date of Service: September 26, 2023
EKG: Tracing Personally Visualized and interpreted (sr) and Other (discussed with service )
Labs: Labs Reviewed by me
[2023-09-26 07:48] LABS: Glucose - Point of Care 113 mg/dl (70-99)
[2023-09-26] MEDS: VITAMIN C 250 MG PO (08:34)
[2023-09-26] MEDS: THERAGRAN 1 TABLET PO (08:34)
[2023-09-26] MEDS: NOVOLOG FLEXPEN-MODERATE RESISTANCE SC ×3 (08:34→18:27)
[2023-09-26] MEDS: TOPROL XL 100 MG PO (08:34)
[2023-09-26] MEDS: NEURONTIN 100 MG PO ×3 (08:34→23:13)
[2023-09-26] MEDS: TYLENOL PO ×2 (08:34→16:32)
[2023-09-26] MEDS: FEOSOL 325 MG PO (08:35)
[2023-09-26] MEDS: LOW STRENGTH ASPIRIN 81 MG PO (08:35)
[2023-09-26] MEDS: LIDOCAINE 4% PATCH TOPICAL (08:35)
[2023-09-26] MEDS: ELIQUIS 5 MG PO ×2 (08:35→20:23)
[2023-09-26] MEDS: PROTONIX 40 MG PO (08:35)
[2023-09-26] MEDS: TOPROL XL 25 MG PO (10:03)
--- NOTE | 2023-09-26 11:42 | CM ---
CM following for DC planning needs.
Met w/ patient at bedside. Pt. feels well. Observed patient ambulating ad elena in ruiz.
Plan remains for home w/ CT Transitional Care RN.
CM to cont. to follow.
--- NOTE | 2023-09-26 12:36 | PTCARENOTE ---
Ambulating at elena in hallway w/o issue. VSS, denies complaint. Assessment otherwise unchanged from prior.
[2023-09-26] MEDS: NSS IV (13:04)
--- NOTE | 2023-09-26 16:30 | PTCARENOTE ---
VSS,. Denies pain. Assessment unchanged from prior.
[2023-09-26] MEDS: PACERONE 200 MG PO ×2 (16:37→23:13)
--- NOTE | 2023-09-26 20:00 | PTCARENOTE ---
Resumed care of patient from previous RN. Walking rounds done. patient resting in bed at time of assessment. VSS, denies complaint. will continue to monitor.
[2023-09-26] MEDS: TOPROL XL 150 MG PO (20:23)
[2023-09-26] MEDS: TYLENOL 1000 MG PO (23:13)
[2023-09-27] VITALS (7 sets, daily range): BP systolic 109–151; BP diastolic 61–75; PULSE 90; O2SAT 98; BMI 33.2
--- NOTE | 2023-09-27 02:43 | W.PN.CT ---
Today's Communication / Plan
-
-No overnight events
-Pt with postop PAF, s/p Amiodarone gtt. Received Amiodarone boluses, IV/PO Lopressor, IV Cardizem, and Digoxin before converting 09/24 @ 1853 following the second episode of A-fib with RVR
-Started on Eliquis
-Cont. current meds (ASA, Amiodarone, Toprol XL; Statin and Plavix intolerant)
-Encourage use of IS, still on 2 L NC
-OOB into chair/Ambulate
-Maintain temporary PW (will cut before d/c home)
-Creatinine is @ baseline, was 1.6/1.7 (baseline 1.2-1.6)
-Dispo planning
Assessment / Plan
-
Assessment:
-S/P AVR (#25 Inspiris)/CABG x 1 (GSV to RPDA)/Endoscopic harvest/prep of RLE GSV, by Dr. Brown, 09/21/23, pod#6
-Severe , moderate AI
-Single-vessel CAD (RCA)
-USA
-LVEF 60% preop, 65% postop per intraop BRETT
-HTN
-HLD (statin intolerant, on Repatha 140 mg SC Q2W)
-CKD3a
-Renal calculi
-Prediabetes (hgb A1C 6.0)
-Class 1 obesity (BMI 33.3)
-GEORGE (uses CPAP @ home)
-Gout (did not tolerate pharmacotherapy, currently diet controlled)
-Hx diverticulitis S/P partial colectomy, 2003
-Hx Ulcerative colitis S/P colectomy/colostomy with subsequent colostomy reversal, 2004
-S/P L rotator cuff repair
-S/P hernia repair
-S/P cholecystectomy
-Acute postop blood loss/Anemia (stable without blood transfusion)
-Acute postop thrombocytopenia (stable without active bleed)
-Acute postop atelectasis/pleural effusion
-Acute postop hypovolemia with subsequent hypervolemia
-Acute postop a-fib with RVR (x 10hrs on POD#2)
-Acute postop SVT/PAT
Subjective
Procedure
AVR (#25 Inspiris)/CABG x 1 (GSV to RPDA)/Endoscopic harvest/prep of RLE GSV, by Dr. Brown, 09/21/23
-
Date of Service: September 27, 2023
No overnight events. in NSR.
Objective Data
-
Lab Results
09/26/23 04:17
PT 17.9 Sec (11.4-14.6) H 09/21/23 12:11
INR 1.49 09/21/23 12:11
APTT 39.6 Sec (23.4-35.0) H 09/21/23 12:11
Vital Signs
Vital Signs
Temp Pulse Resp BP Pulse Ox
98 F 84 18 134/73 95
09/26/23 23:00 09/26/23 23:13 09/26/23 20:00 09/26/23 20:30 09/26/23 23:00
CT Intake/Output/Weight
09/26/23 09/26/23 09/27/23
06:59 18:59 06:59
Intake Total 480 / 2266.6 626.7 / 746.7 120 / 746.7
Output Total 450 / 1000
Balance 30 / 1266.6 626.7 / 746.7 120 / 746.7
SaO2: 95
Physical Exam
-
General: Awake and Oriented
Cardiovascular: Regular rate & rhythm and No Murmurs
Respiratory: Clear and Equal
Sternum: Stable
Incision: Clean, Dry and Intact
Extremities: No Edema and No Erythema
Data Reviewed
-
Lab Results: Results Reviewed
Medications: Active Meds Reviewed
Chest X-Ray: Report Reviewed
CT Scan: Report Reviewed
ECG: Report Reviewed
--- NOTE | 2023-09-27 03:51 | PTCARENOTE ---
patients assessment not changed. resting comfortably. will continue to monitor.
[2023-09-27 05:26] LABS: Blood Urea Nitrogen 30 mg/dl (9-20); Calcium 8.9 mg/dl (8.4-10.2); Carbon Dioxide 28 mmol/L (22-30); Chloride 105 mmol/L (98-107); Estimated Creatinine Clearance 52 ml/min; Glucose 101 mg/dl (70-99); Potassium 4.2 mmol/L (3.5-5.1); Sodium 140 mmol/L (135-145); eGFR 51.03
[2023-09-27] MEDS: TYLENOL PO ×2 (05:46→13:16)
[2023-09-27] MEDS: NOVOLOG FLEXPEN-MODERATE RESISTANCE SC ×3 (07:54→16:32)
[2023-09-27] MEDS: VITAMIN C 250 MG PO (08:50)
[2023-09-27] MEDS: NEURONTIN 100 MG PO ×3 (08:51→20:48)
[2023-09-27] MEDS: TOPROL XL 150 MG PO ×2 (08:51→20:48)
[2023-09-27] MEDS: PACERONE 200 MG PO ×3 (08:51→20:48)
[2023-09-27] MEDS: FEOSOL 325 MG PO (08:51)
[2023-09-27] MEDS: LOW STRENGTH ASPIRIN 81 MG PO (08:51)
[2023-09-27] MEDS: ELIQUIS 5 MG PO ×2 (08:51→20:48)
--- NOTE | 2023-09-27 08:51 | W.DCSUMMARY ---
Discharge Summary
Discharge Data
Date of Admission: 09/18/23
Date of Discharge: 09/28/23
Total time spent discharging patient (in min): 40
-
Pending Results: No
Hospital Course
Primary care physician:
Dr. Jesus Palmer
Outpatient assistant account manager:
Dr. Friedman
Inpatient consultants:
Procedures:
1. CABG x1 (SVG to RPDA)
2. AVR with #25 inspiris tissue valve
Primary Diagnosis:
1. Severe Aortic stenosis
2. Single vessel coronary artery disease
Secondary Diagnoses:
1. Chronic kidney disease
2. Prediabetes
3. Obstructive sleep apnea
4. Diverticulitis
5. Nephrolithiasis
6. Postoperative atrial fibrillation
HPI: 68-year-old male that presented to [facility] on 521 for an elective cath for worsening unstable angina was found to have severe aortic stenosis and single-vessel CAD. Patient was worked up preoperatively for surgical intervention and
was taken to the OR on 09/20.
Hospital course: On 09/20 patient went to the CV OR with Dr. Brown. He returned to the CVICU on Levophed, insulin, and Precedex infusions. He received 2 albumins and Precedex was weaned off and patient was extubated. On 09/21 postop day #1 patient
was weaned off Levophed and was started on beta-blockers and Norvasc. Vanegas was discontinued and chest tubes were bulb. Insulin drip was turned off and he was downgraded to telemetry status. On 09/22 postoperative day #2 chest tubes were removed.
Later in the afternoon he went into rapid A-fib he received amnio bolus x 3, multiple Lopressor pushes, and magnesium was repleted. Patient converted into sinus rhythm at 8 PM. On 09/23 postoperative day #3 beta-blockers were increased patient was
given Lasix twice a day. He remained in sinus rhythm. On 09/24 postoperative day #4 patient converted back into atrial fibrillation he received Lopressor 5 mg IV push x 2, an additional 2 amio boluses. He was refractory to those interventions he
was then given Cardizem 5 mg along with a digoxin load. Oral metoprolol was increased to 100 mg twice daily. He was started on Eliquis and made n.p.o. for possible cardioversion. On 09/25 postoperative day #5 patient converted into sinus rhythm we
resumed oral Amio and completed his Amio drip. Digoxin was no longer continued per cardiology and Lopressor was increased to 150 mg twice a day. On 09/26 Post op day #6, patient remained in the hospital for afib monitoring. On 09/27 post-op day #6,
he remained in sinus rhythm was deemed stable for discharge.
Home medication changes:
see below
Discharge Plan
-
Patient Disposition: Home (Routine Discharge)
Discharge Diagnosis/Procedures: Cardiac catheterization, AVR (#25 Inspiris)/CABG x 1 (GSV to RPDA)
Condition: Good
Diet: Low Cholesterol and Diabetic, Carb Controlled
Activity: No strenuous activity
Driving Restrictions: No driving for 24 hours
Bathing Restrictions: OK to Shower
Other Services: Cardiac Rehab
Specialty Instructions: Weigh Daily- Call MD for wt gain/loss 3 lbs overnight/5 lbs in 1 week
Activity Restrictions/Additional Instructions:
ACTIVITY:
-No strenuous activity: no heavy lifting, pushing, pulling anything over 15 pounds for one month
-continue to use stairs as tolerated
DRIVING RESTRICTIONS:
-No driving for one month or until approved by your surgeon
WOUND CARE:
-Shower daily. Use soap & water.
-No lotions, creams or powders on incision area.
DIET:
-continue a low fat/low cholesterol diet.
-IF you are diabetic, continue carb controlled diet.
CARDIAC REHAB:
-Please make appointment to start in 5-6 weeks with your local hospital program. (See Cardiac Rehabilitation Discharge Booklet).
SPECIALTY INSTRUCTIONS:
-Weigh yourself daily. Call your physician for any weight gain/loss of 3 lbs overnight or 5 lbs in one week.
-REPORT any clicking noise or uneven appearance of your sternum to your surgeon immediately.
-If you smoke, you are instructed to quit. The [place] smoking hotline phone number is [phone]
Stand Alone Forms: DC Instructions- Cath/EP Lab
Referrals:
CT Transitional Care Nurse [Outside] (The Cardiothoracic Transitional Care Nurse will call you to set up a visit in 1-2 days.)
Jesus Palmer MD [Family Provider] - in one to two weeks
Jeanie Friedman MD [Non-Admitting Privileges] - 11/12/23 10:00 am
Daniel Brown MD [Active] - 10/23/23 2:30 pm (Cardiac surgery)
Additional Discharge Medication Instructions: Do not resume Losartan, amlodipine, and atenolol unless directed by a doctor.
Prescriptions:
New
Eliquis 5 mg Tablet
5 mg PO BID Qty: 60 1RF
acetaminophen 325 mg Tablet
650 mg PO Q4HPRN PRN (Reason: mild pain,headache,temp >101F ) Qty: 0 0RF
lidocaine 4 % Adhesive Patch,Medicated
1 patch topical DAILY Qty: 0 0RF
amiodarone [Pacerone] 200 mg Tablet
200 mg PO BID 14 Days Qty: 28 0RF
metoprolol succinate 50 mg Tablet Extended Release 24 Hr
150 mg PO BID Qty: 90 1RF
tramadol 50 mg Tablet
25 mg PO Q6HPRN PRN (Reason: moderate to severe pain) Qty: 60 0RF
amiodarone 200 mg tablet
200 mg PO DAILY Qty: 30 0RF
Rx Instructions:
start 2 weeks after discharge
Continued
multivitamin 1 EACH tablet
1 ea PO DAILY
aspirin [Aspir-Low] 81 MG tablet,delayed release (DR/EC)
81 mg PO DAILY
Flexcin Joint And Mobility
1 tab PO TID
ferrous sulfate 325 mg (65 mg iron) Capsule, Extended Release
325 mg PO DAILY
Repatha Syringe 140 mg/mL Syringe
140 mg SC Q2W
Held
omega 1-rns-sgq-fish oil [Fish Oil] 1 EACH capsule
1 ea PO DAILY
Hold Instructions: Resume on 10/05/23.
Discontinued
atenolol 25 MG tablet
12.5 mg PO BID
amlodipine 5 MG tablet
5 mg PO BID
losartan 25 mg Tablet
25 mg PO BID
Care Plan Goals
Care Plan Goals:
Problem: Readiness for enhanced knowledge related to diagnosis and treatment plan
Goal: Understand your diagnosis and treatment plan needs, including medications if applicable.
Instructions: Know your diagnosis, underlying causes and treatment plan options, including medications if applicable. Consult with your health care team to learn about your diagnosis and treatment plan, including medications if applicable.
Discharge Date and Time
Print Language: EGYPTIAN
[2023-09-27] MEDS: PROTONIX 40 MG PO (08:52)
[2023-09-27] MEDS: LIDOCAINE 4% PATCH 1 PATCH TOPICAL (08:52)
[2023-09-27] MEDS: THERAGRAN 1 TABLET PO (08:54)
--- NOTE | 2023-09-27 09:40 | PTCARENOTE ---
assumed care of pt from previous shift RN, sinus rhythm on tele, VSS, + peripheral pulses, no edema noted. Lungs diminished, coughing and deep breathing encouraged. +bs, tolerating PO intake, voids spontaneously. Epicardial wire insulted, surgical
sites intact. plan of care reviewed w the pt and questions encouraged.
[2023-09-27] MEDS: NSS IV (11:02)
--- NOTE | 2023-09-27 11:57 | W.PN.CD ---
Today's Communication / Plan
-
- Telemetry for AF surveillance.
Impression / Plan
-
Impression/Plan: 68 y/o, PMH sig for elevated calcium score in 2021, moderate , HTN, statin intolerant HLD, NIDDM, CKD3a w/baseline creat 1.4, Gout, UC, obesity, Colon CA s/p partial colectomy (2003) and moderate non obstructive CAD in LAD, RCA at
prior cath (2021) transferred [facility] with with 2 week history progressive exertional chest pain, DARDEN, diaphoresis, relieved with rest.
CAD and
- s/p AVR and CABG
- intra op BRETT: EF 65%
- cont ASA 81mg
Post op A fib, paroxysmal now back in SR September 25
-amio PO for discharge
-cont Toprol XL
-CHADS2-VASC= 4. Eliquis 5mg bid started for OAC
-If no sign of recurrence, then OAC can be stopped in 6 weeks (Only post op AF). However, with elevated CHADSVasc score, would consider to continue.
-discuss at 6 weeks. Patient is getting Qwite device (6L) to monitor at home.
HTN
Mixed hyperlipidemia: statin
CKD3a
PCP: Jesus Palmer MD
CDY: Jeaine Friedman MD
Subjective:
Feeling better spontaneous CV back to SR. No sign of recurrence since yesterday
Physical Exam
Vital Signs/Labs
Vital Signs
Temp Pulse Resp BP Pulse Ox
98.8 F 86 16 151/74 98
09/27/23 08:59 09/27/23 08:58 09/27/23 08:59 09/27/23 08:59 09/27/23 09:45
09/26/23 09/27/23 09/28/23
06:59 06:59 06:59
Actual Weight 93.5 kg 93.3 kg
09/26/23 04:17
09/27/23 04:48
PT 17.9 Sec (11.4-14.6) H 09/21/23 12:11
INR 1.49 09/21/23 12:11
APTT 39.6 Sec (23.4-35.0) H 09/21/23 12:11
Magnesium 2.0 mg/dl (1.6-2.3) 09/27/23 04:48
Physical Exam
Constitutional: No acute distress and Comfortable
EENT: Anicteric and Moist mucous membranes
Cardiovascular: Rhythm & rate is regular, Pedal edema is absent and JVD pressure is normal
Respiratory: Respiratory effort normal, Lungs clear to auscul. and Crackles Absent
GI: Soft, Non tender and Normal bowel sounds
Neuro/Psych: Alert, Oriented and AO x 3
Data Reviewed
-
Date of Service: September 27, 2023
Medical Decision Making: Reviewed Test Results, Independent Historian Assessment, Test Interpretation and Review of Case with other Provider
EKG: Tracing Personally Visualized and interpreted
Echo: Report Reviewed by me
Labs: Labs Reviewed by me
Old Records: Reviewed
--- NOTE | 2023-09-27 12:16 | PTCARENOTE ---
sinus rhythm maintained on tele, VSS, pt ambulating in ruiz independently. MSI dressing removed, CT sutures AYSE without drainage.
--- NOTE | 2023-09-27 16:15 | PTCARENOTE ---
VSS, sinus rhythm maintained on tele. Pt without complaint.
--- NOTE | 2023-09-27 20:15 | PTCARENOTE ---
assumed care of pt from previous RN. pt A&Ox4, resting in bed at time of assessment. SR on tele-monitor, HR 80s-90s. palpable peripheral pulses, no edema noted. temp epicardial v-wires insulated. POX 94% on RA. abd s/n, +BS. pt voiding clear, yellow
urine. all surgical sites stable, CDI. PIV intact. plan of care discussed w/ pt, pt in agreement. see worklist for complete nursing assessment, interventions, VS, and I&Os.
[2023-09-27] MEDS: TYLENOL 1000 MG PO (20:48)
[2023-09-28 03:18] VITALS: BP 128/69
--- NOTE | 2023-09-28 04:00 | PTCARENOTE ---
no change from previous assessment. VSS.
--- NOTE | 2023-09-28 05:15 | W.PN.CT ---
Today's Communication / Plan
-
-pod #7
-no issues overnight, remains in nsr since 09/25
-current meds (ASA, Eliquis, Toprol XL 150 bid, Amio tid)
-cut pw prior to discharge
-likely d/c today
Assessment / Plan
-
Assessment:
-S/P AVR (#25 Inspiris)/CABG x 1 (GSV to RPDA)/Endoscopic harvest/prep of RLE GSV, by Dr. Brown, 09/21/23, pod#7
-Severe , moderate AI
-Single-vessel CAD (RCA)
-USA
-LVEF 60% preop, 65% postop per intraop BRETT
-HTN
-HLD (statin intolerant, on Repatha 140 mg SC Q2W)
-CKD3a (Cr 1.2-1.5 preop)
-Renal calculi
-Prediabetes (hgb A1C 6.0)
-Class 1 obesity (BMI 33.3)
-GEORGE (uses CPAP @ home)
-Gout (did not tolerate pharmacotherapy, currently diet controlled)
-Hx diverticulitis S/P partial colectomy, 2003
-Hx Ulcerative colitis S/P colectomy/colostomy with subsequent colostomy reversal, 2004
-S/P L rotator cuff repair
-S/P hernia repair
-S/P cholecystectomy
-Acute postop blood loss/Anemia (stable without blood transfusion)
-Acute postop thrombocytopenia (stable without active bleed)
-Acute postop atelectasis/pleural effusion
-Acute postop hypovolemia with subsequent hypervolemia
-Acute postop a-fib with RVR (x 10hrs on POD#2)
-Acute postop SVT/PAT
Discussed patient care with: Nursing and Care Team
Subjective
Procedure
AVR (#25 Inspiris)/CABG x 1 (GSV to RPDA)/Endoscopic harvest/prep of RLE GSV, by Dr. Brown, 09/21/23
-
Date of Service: September 28, 2023
Objective Data
-
Lab Results
09/26/23 04:17
09/27/23 04:48
PT 17.9 Sec (11.4-14.6) H 09/21/23 12:11
INR 1.49 09/21/23 12:11
APTT 39.6 Sec (23.4-35.0) H 09/21/23 12:11
Vital Signs
Vital Signs
Temp Pulse Resp BP Pulse Ox
98.4 F 74 18 128/69 98
09/28/23 04:00 09/28/23 04:00 09/28/23 04:00 09/28/23 03:18 09/28/23 04:00
CT Intake/Output/Weight
09/27/23 09/27/23 09/28/23
06:59 18:59 06:59
Intake Total 120 / 746.7
Balance 120 / 746.7
SaO2: 98
Physical Exam
-
General: Awake and Oriented
Cardiovascular: Regular rate & rhythm and No Murmurs
Respiratory: Clear and Equal
Sternum: Stable
Incision: Clean, Dry and Intact
Extremities: No Edema and No Erythema
Data Reviewed
-
Lab Results: Results Reviewed
Medications: Active Meds Reviewed
Chest X-Ray: Report Reviewed and Image Reviewed
ECG: Report Reviewed and Image Reviewed
[2023-09-28 06:00] VITALS: BMI 33.0
[2023-09-28] MEDS: TYLENOL 1000 MG PO (07:16)
[2023-09-28 07:33] VITALS: BP 139/71
[2023-09-28] MEDS: FEOSOL 325 MG PO (07:40)
[2023-09-28] MEDS: PROTONIX 40 MG PO (07:40)
[2023-09-28] MEDS: LOW STRENGTH ASPIRIN 81 MG PO (07:40)
[2023-09-28] MEDS: TOPROL XL 150 MG PO (07:40)
[2023-09-28] MEDS: ELIQUIS 5 MG PO (07:40)
[2023-09-28] MEDS: NEURONTIN 100 MG PO (07:40)
[2023-09-28] MEDS: THERAGRAN 1 TABLET PO (07:40)
[2023-09-28] MEDS: PACERONE 200 MG PO (07:40)
[2023-09-28] MEDS: VITAMIN C 250 MG PO (07:40)
[2023-09-28] MEDS: LIDOCAINE 4% PATCH 1 PATCH TOPICAL (07:41)
--- NOTE | 2023-09-28 07:45 | PTCARENOTE ---
Assumed care of patient. Walking rounds completed. Pt assessed while he was sitting in the chair. Pt alert and oriented x4. Pt denies pain, chest pain, shortness of breath, and nausea. RYAN with equal strength throughout. NSR on tele with rates in
the 80s. BP stable 139/71. Heart tones audible. Bilateral radial and DP pulses palpable. No edema noted. Epicardial v-wire cut with CT SUPERVISOR CORE SHOP. POX 98% on RA. Lungs diminished in the bases. IS encouraged. No cough noted. Abdomen soft, round, nontender.
+BS. Pt denies issues voiding or constipation/diarrhea. Sternal incision approximated, FACING END TRIMMER. Old chest tube sites approximated with sutures, AYSE. Right groin puncture site approximated AYSE. Right SVG harvest site approximated and AYSE. Right AC PIV
intact. Wt obtained. See MAR for medication administration. See worklist for complete nursing assessment. Plan of care reviewed and pt in agreement.
[2023-09-28 07:47] LABS: Glucose - Point of Care 113 mg/dl (70-99)
[2023-09-28] MEDS: NSS IV (07:47)
[2023-09-28] MEDS: NOVOLOG FLEXPEN-MODERATE RESISTANCE SC (07:47)
--- NOTE | 2023-09-28 10:15 | PTCARENOTE ---
Discharge order received. Pt stable prior to discharge. Pt showered independently. Pt's at bedside. Reviewed discharge instructions with patient. All questions answered. PIV d/c. Pt discharged.
--- NOTE | 2023-09-28 10:52 | CM ---
CM following for DC planning needs.
Met w/ patient at bedside. Patient is for DC to home today. Feels well and is prepared to leave.
Reviewed post op MD appointments, Cardiac Rehab, visit from CT Transitional Care RN.
Plan for home today w/ CT Transitional Care RN.
== END 2023-09-28 10:48 | disposition home or self-care (01) | DRG 217 ==
LOC: CVICU 12:11
PROVIDERS: Anesthesiology; Clinical Nurse Specialist Acute Care; Nurse Practitioner; Physician Assistant Medical; ADMITTING PHYSICIAN Internal Medicine Cardiovascular Disease; ATTENDING PHYSICIAN Thoracic Surgery (Cardiothoracic Vascular Surgery); CONSULT PHYSICIAN Internal Medicine Critical Care Medicine; CONSULT PHYSICIAN Orthopaedic Surgery; FAMILY PHYSICIAN Internal Medicine
PROC: 4A033BC Measurement of Arterial Pressure, Coronary, Percutaneous Approach (ICD-10-PCS; 2023-09-18)
PROC: 4A023N7 Measurement of Cardiac Sampling and Pressure, Left Heart, Percutaneous Approach (ICD-10-PCS; 2023-09-18)
PROC: B2151ZZ Fluoroscopy of Left Heart using Low Osmolar Contrast (ICD-10-PCS; 2023-09-18)
PROC: B2111ZZ Fluoroscopy of Multiple Coronary Arteries using Low Osmolar Contrast (ICD-10-PCS; 2023-09-18)
PROC: 021009W Bypass Coronary Artery, One Artery from Aorta with Autologous Venous Tissue, Open Approach (ICD-10-PCS; 2023-09-21)
PROC: 02RF08Z Replacement of Aortic Valve with Zooplastic Tissue, Open Approach (ICD-10-PCS; 2023-09-21)
PROC: 5A1221Z Performance of Cardiac Output, Continuous (ICD-10-PCS; 2023-09-21)
PROC: 06BP4ZZ Excision of Right Saphenous Vein, Percutaneous Endoscopic Approach (ICD-10-PCS; 2023-09-21)
PROC: B24BZZ4 Ultrasonography of Heart with Aorta, Transesophageal (ICD-10-PCS; 2023-09-21)
DX: I21.4 Non-ST elevation (NSTEMI) myocardial infarction (principal); D62 Acute posthemorrhagic anemia; I42.1 Obstructive hypertrophic cardiomyopathy; K51.90 Ulcerative colitis, unspecified, without complications; J98.11 Atelectasis; J90 Pleural effusion, not elsewhere classified; I47.10 Supraventricular tachycardia, unspecified; I25.110 Atherosclerotic heart disease of native coronary artery with unstable angina pectoris; I35.2 Nonrheumatic aortic (valve) stenosis with insufficiency; I12.9 Hypertensive chronic kidney disease with stage 1 through stage 4 chronic kidney disease, or unspecified chronic kidney disease; G47.33 Obstructive sleep apnea (adult) (pediatric); I48.0 Paroxysmal atrial fibrillation; E78.00 Pure hypercholesterolemia, unspecified; Q66.6 Other congenital valgus deformities of feet; E66.9 Obesity, unspecified; N18.31 Chronic kidney disease, stage 3a; M10.9 Gout, unspecified; D69.59 Other secondary thrombocytopenia; R73.03 Prediabetes; Z68.33 Body mass index [BMI] 33.0-33.9, adult; Z79.82 Long term (current) use of aspirin; Z79.899 Other long term (current) drug therapy; Z82.49 Family history of ischemic heart disease and other diseases of the circulatory system; Z87.442 Personal history of urinary calculi
CPT/HCPCS: 88305; 88311; 70355; 71045; 71046; 71250; 80048; 80076; 81003; 81015; 82330; 82565; 82805; 82947; 82962; 83036; 83735; 84132; 84302; 84520; 85014; 85018; 85027; 85049; 85347; 85610; 85730; 86850; 86900; 86901; 86920; 93005; 93306; 93312; 93320; 93325; 93458; 93571; 93880; 94002; 97116; 97162; 97164; 97165; 97168; 97535; C1769; C1894; J0153; J1160; P9045; Q9967